=== PATIENT | male | born 1945 | race Caucasian/White ===

== ENCOUNTER → 2023-08-24 08:29 | Outpatient (REF) | payer MEDICARE, OTHER, SELFPAY ==
[2023-08-24 10:20] LABS: % Basophils 0.6 % (0-2); % Eosinophils 3.9 % (0-6); % Immature Granulocytes 0.3 % (0-0.5); % Lymphocytes 26.9 % (20.5-51.1); % Monocytes 8.5 % (1.7-9.3); % Neutrophils 59.8 % (42.2-75.2); Absolute Eosinophils 0.3 10^3/uL (0-0.7); Absolute Lymphocytes 1.7 10^3/uL (1.2-3.4); Absolute Monocytes 0.6 10^3/uL (0.1-0.6); Absolute Neutrophils 3.9 10^3/uL (1.4-6.5); Hematocrit 39.5 % (39.0-52.0); Hemoglobin 13.2 g/dL (13.0-18.0); Mean Corp Hgb Conc. 33.4 g/dL (33.0-37.0); Mean Corpuscular Volume 95.9 fL (80.0-94.0); Mean Platelet Volume 9.1 fL (7.4-10.4); Nucleated Red Blood Cells % 0 % (-); Platelet Count 186 10^3/uL (130-400); Red Blood Cell Count 4.12 10^6/uL (4.70-6.10); Red Cell Dist. Width 13.3 % (11.5-14.5); White Blood Cell Count 6.5 10^3/uL (4.8-10.8)
[2023-08-24 10:56] LABS: ALT (SGPT) 21 U/L (0-50); AST (SGOT) 28 U/L (17-59); Albumin 4.6 g/dl (3.5-5.0); Alkaline Phosphatase 81 U/L (38-126); Blood Urea Nitrogen 26 mg/dl (9-20); Carbon Dioxide 28 mmol/L (22-30); Chloride 102 mmol/L (98-107); Glucose 116 mg/dl (70-99); HDL Cholesterol 38 mg/dl; LDL Cholesterol, Calculated 66 mg/dl; Potassium 4.8 mmol/L (3.5-5.1); Sodium 142 mmol/L (135-145); Total Bilirubin 1.7 mg/dl (0.2-1.3); Total Cholesterol 144 mg/dl (50-199); Total Protein 7.3 g/dl (6.3-8.2); Triglyceride 200 mg/dl (10-149); Very Low Density Lipoprotein 40 mg/dl (0-30); eGFR > 60.00
[2023-08-24 11:03] LABS: Vitamin D, 25-OH*** 46.5 ng/mL (30-80)
[2023-08-24 11:16] LABS: TSH 2.62 uIU/ml (0.47-4.68)
[2023-08-25 11:35] LABS: PSA Total 4.1 ng/mL (0.0-4.0)
== END ==
LOC: REG 08:29
PROVIDERS: ATTENDING PHYSICIAN Family Medicine
DX: F41.9 Anxiety disorder, unspecified (principal); I70.0 Atherosclerosis of aorta; R26.81 Unsteadiness on feet; H40.9 Unspecified glaucoma; N40.0 Benign prostatic hyperplasia without lower urinary tract symptoms; E78.00 Pure hypercholesterolemia, unspecified; Z86.73 Personal history of transient ischemic attack (TIA), and cerebral infarction without residual deficits; Z79.899 Other long term (current) drug therapy
CPT/HCPCS: 36415; 80053; 80061; 82306; 84153; 84154; 84443; 85025

== ENCOUNTER → 2023-09-03 14:21 | Outpatient (REF) | payer MEDICARE, OTHER, SELFPAY ==
[2023-09-03 19:02] LABS: Urine Albumin Negative (Neg - Trace); Urine Bilirubin Negative (Negative); Urine Character Clear (Clear); Urine Color Yellow; Urine Glucose Negative (Negative); Urine Ketone Trace (Negative); Urine Leukocyte Negative (Negative); Urine Nitrite Negative (Negative); Urine Occult Blood Negative (Negative); Urine Urobilinogen 1+ (Neg - 1+)
== END ==
LOC: CLAB 14:21
PROVIDERS: ATTENDING PHYSICIAN Surgery
DX: N39.0 Urinary tract infection, site not specified (principal)
CPT/HCPCS: 81003; 87086

== ENCOUNTER → 2023-11-10 12:40 | Outpatient (REF) | payer MEDICARE, OTHER, SELFPAY | LOC: HWRAD 12:40 | PROVIDERS: ATTENDING PHYSICIAN Surgery; FAMILY PHYSICIAN Family Medicine | DX: Z87.442 Personal history of urinary calculi (principal) | CPT/HCPCS: 76775 ==

== ENCOUNTER → 2023-12-15 13:09 | Outpatient (REF) | payer MEDICARE, OTHER, SELFPAY ==
[2023-12-17 18:39] LABS: PSA Total 13.6 ng/mL (0.0-4.0)
== END ==
LOC: REG 13:09
PROVIDERS: ATTENDING PHYSICIAN Surgery; FAMILY PHYSICIAN Family Medicine
DX: Z12.5 Encounter for screening for malignant neoplasm of prostate (principal); N40.1 Benign prostatic hyperplasia with lower urinary tract symptoms
CPT/HCPCS: 36415; 84153; 84154

== ENCOUNTER → 2023-12-17 10:58 | Outpatient (REF) | payer MEDICARE, OTHER, SELFPAY ==
[2023-12-17 11:43] LABS: ALT (SGPT) 22 U/L (0-50); AST (SGOT) 26 U/L (17-59); Albumin 4.6 g/dl (3.5-5.0); Alkaline Phosphatase 76 U/L (38-126); Blood Urea Nitrogen 27 mg/dl (9-20); Calcium 9.8 mg/dl (8.4-10.2); Carbon Dioxide 32 mmol/L (22-30); Chloride 99 mmol/L (98-107); Glucose 108 mg/dl (70-99); Sodium 141 mmol/L (135-145); Total Bilirubin 1.5 mg/dl (0.2-1.3); Total Protein 6.9 g/dl (6.3-8.2); eGFR > 60.00
== END ==
LOC: RAD 10:58
PROVIDERS: ATTENDING PHYSICIAN Surgery; FAMILY PHYSICIAN Family Medicine
DX: N28.89 Other specified disorders of kidney and ureter (principal)
CPT/HCPCS: 36415; 74170; 80053; Q9967

== ENCOUNTER 2024-01-04 07:02 | Outpatient (REF) | payer MEDICARE, OTHER, SELFPAY ==
[2024-01-04] VITALS (16 sets, daily range): BP systolic 54–122; BP diastolic 62–79
[2024-01-04 08:03] LABS: INR 1.03; PT 13.4 Sec (11.4-14.6)
[2024-01-04 08:06] LABS: % Basophils 0.5 % (0-2); % Eosinophils 5.4 % (0-6); % Immature Granulocytes 0.3 % (0-0.5); % Lymphocytes 26.2 % (20.5-51.1); % Monocytes 8.2 % (1.7-9.3); % Neutrophils 59.4 % (42.2-75.2); Absolute Eosinophils 0.3 10^3/uL (0-0.7); Absolute Lymphocytes 1.6 10^3/uL (1.2-3.4); Absolute Monocytes 0.5 10^3/uL (0.1-0.6); Absolute Neutrophils 3.5 10^3/uL (1.4-6.5); Hematocrit 37.3 % (39.0-52.0); Hemoglobin 12.8 g/dL (13.0-18.0); Mean Corp Hgb Conc. 34.3 g/dL (33.0-37.0); Mean Corpuscular Hgb 31.4 pg (27.0-31.0); Mean Corpuscular Volume 91.4 fL (80.0-94.0); Mean Platelet Volume 9.2 fL (7.4-10.4); Nucleated Red Blood Cells % 0 % (-); Platelet Count 185 10^3/uL (130-400); Red Blood Cell Count 4.08 10^6/uL (4.70-6.10); Red Cell Dist. Width 13.2 % (11.5-14.5)
[2024-01-04 08:08] LABS: Blood Urea Nitrogen 29 mg/dl (9-20); Calcium 9.5 mg/dl (8.4-10.2); Carbon Dioxide 30 mmol/L (22-30); Chloride 100 mmol/L (98-107); Estimated Creatinine Clearance 67 ml/min; Glucose 119 mg/dl (70-99); Potassium 4.1 mmol/L (3.5-5.1); Sodium 141 mmol/L (135-145); eGFR > 60.00
== END 2024-01-04 13:33 | disposition home or self-care (01) ==
LOC: RADI 07:02
PROVIDERS: ATTENDING PHYSICIAN Urology; FAMILY PHYSICIAN Family Medicine
DX: C64.2 Malignant neoplasm of left kidney, except renal pelvis (principal)
CPT/HCPCS: 88307; 36415; 50200; 77012; 80048; 85025; 85610; 88333; 88334; 99152; 99153

== ENCOUNTER → 2024-03-09 11:34 | Outpatient (REF) | payer MEDICARE, OTHER, SELFPAY | LOC: MRI 3T 11:34 | PROVIDERS: ATTENDING PHYSICIAN Urology; FAMILY PHYSICIAN Family Medicine | DX: R97.20 Elevated prostate specific antigen [PSA] (principal) | CPT/HCPCS: 36415; 72197; 86850; 86900; 86901; A9575 ==

== ENCOUNTER 2024-03-16 06:41 | Day surgery (SDC) | payer MEDICARE, OTHER, SELFPAY ==
[2024-03-16] VITALS (21 sets, daily range): BP systolic 97–132; BP diastolic 58–86; BMI 31.6
[2024-03-16 11:08] LABS: B.E. - POC 5.3 mmol/L; Glucose - POC 116 mg/dl (70-99); HCO3 - POC 30 mmol/L (21-28); Hematocrit - POC 38 % PCV (42-52); Hemodilution- POC Yes; Hemoglobin Calculated - POC 13.1; Ionized Calcium - POC 1.19 mmol/L (1.15-1.33); Lactate - POC 1.79 mmol/L (0.36-0.75); O2 Saturation %Calculated-POC 76.9 % (94-98); PCO2 - POC 43 mmHg (35-48); PO2 - POC 40 mmHg (83-108); Sodium - POC 140 mmol/L (136-145); Specimen Type - POC Venous; pH - POC 7.45 (7.35-7.45)
[2024-03-16] MEDS: NORMOSOL-R/PLASMALYTE-A 1000 IV (11:18)
[2024-03-16 15:47] LABS: Hematocrit 36.1 % (39.0-52.0); Mean Corp Hgb Conc. 33.2 g/dL (33.0-37.0); Mean Corpuscular Hgb 31.8 pg (27.0-31.0); Mean Corpuscular Volume 95.8 fL (80.0-94.0); Mean Platelet Volume 8.7 fL (7.4-10.4); Platelet Count 117 10^3/uL (130-400); Red Blood Cell Count 3.77 10^6/uL (4.70-6.10); Red Cell Dist. Width 12.8 % (11.5-14.5); White Blood Cell Count 8.1 10^3/uL (4.8-10.8)
[2024-03-16] MEDS: DILAUDID 0.25 MG IV ×3 (15:57→16:32)
[2024-03-16 16:21] LABS: Blood Urea Nitrogen 20 mg/dl (9-20); Calcium 8.6 mg/dl (8.4-10.2); Carbon Dioxide 25 mmol/L (22-30); Chloride 100 mmol/L (98-107); Estimated Creatinine Clearance 76 ml/min; Glucose 145 mg/dl (70-99); Potassium 3.9 mmol/L (3.5-5.1); Sodium 136 mmol/L (135-145); eGFR > 60.00
[2024-03-16] MEDS: NSS 1000 IV (18:26)
[2024-03-16] MEDS: TYLENOL 650 MG PO ×2 (18:44→23:41)
--- NOTE | 2024-03-16 19:00 | PTCARENOTE ---
Received patient from PACU s/p L radical nephrectomy. Patient AAOX3, VSS, O2 sat stable on 2L. Admission completed with assistance of at bedside. Patient's 4 lap sites on L side of abdomen approximated and without drainage. NSS infusing through
L wrist IV at 100 ml/hr. Polo draining clear yellow urine, to be removed tomorrow at @ 0600 per MD order. SCDs in place on patient. Patient c/o abdominal pain/tenderness rated 6/10, requesting PRN tylenol, administered by this RN - see MAY. Patient
oriented to room and call lawrence, diet order entered for patient, patient okay for regular diet for dinner per urology, dinner at bedside.
[2024-03-16] MEDS: SENOKOT PO (21:16)
[2024-03-16] MEDS: FLOMAX 0.4 MG PO (21:17)
[2024-03-16] MEDS: PROSCAR 5 MG PO (21:17)
[2024-03-16] MEDS: XALATAN OPHTHALMIC SOLUTION 1 DROP BOTH EYES (21:17)
[2024-03-16] MEDS: LIPITOR 40 MG PO (21:17)
[2024-03-16] MEDS: ANESTHETIC LOZENGE 1 LOZENGE PO (21:47)
[2024-03-17 03:10] VITALS: BP 91/57
[2024-03-17] MEDS: TYLENOL 650 MG PO ×2 (04:21→10:27)
[2024-03-17] MEDS: NSS 1000 IV (04:25)
[2024-03-17 06:00] VITALS: BMI 31.6
--- NOTE | 2024-03-17 06:13 | PTCARENOTE ---
Removed Polo per order. Pt tolerated well. Due to void at 11:50. Pt with no complaints at this time, resting in bed. Call lawrence within reach.
[2024-03-17 07:05] VITALS: BP 112/60
[2024-03-17 07:38] LABS: Blood Urea Nitrogen 22 mg/dl (9-20); Calcium 8.3 mg/dl (8.4-10.2); Carbon Dioxide 22 mmol/L (22-30); Chloride 100 mmol/L (98-107); Estimated Creatinine Clearance 46 ml/min; Glucose 144 mg/dl (70-99); Sodium 136 mmol/L (135-145); eGFR 47.06
[2024-03-17 07:53] LABS: Hemoglobin 11.3 g/dL (13.0-18.0); Mean Corp Hgb Conc. 34.2 g/dL (33.0-37.0); Mean Corpuscular Volume 93.5 fL (80.0-94.0); Platelet Count 160 10^3/uL (130-400); Red Blood Cell Count 3.53 10^6/uL (4.70-6.10); Red Cell Dist. Width 12.9 % (11.5-14.5); White Blood Cell Count 12.6 10^3/uL (4.8-10.8)
[2024-03-17] MEDS: CLARITIN 10 MG PO (07:58)
[2024-03-17] MEDS: ZESTRIL 10 MG PO (07:58)
[2024-03-17] MEDS: SENOKOT 17.2 MG PO (07:58)
[2024-03-17] MEDS: ORETIC 12.5 MG PO (07:58)
[2024-03-17] MEDS: LEXAPRO 10 MG PO (07:58)
[2024-03-17] MEDS: TIMOPTIC 0.5% OPHTHALMIC SOLUTION 1 DROP BOTH EYES (07:59)
[2024-03-17] MEDS: ALPHAGAN 0.2% EYE DROPS 1 DROP BOTH EYES (07:59)
--- NOTE | 2024-03-17 08:44 | W.PN.URO.CBU ---
Today's Communication / Plan
-
Discharge
Assessment / Plan
-
78M with left renal mass, known renal cell carcinoma
post op s/p robotic left nephrectomy
- Reg diet
- Polo out
- ambulate
- IS
- PO pain control - patient requests tylenol only for pain
Discharge today
Diagnosis
-
Date of Service: March 17, 2024
-
Patient Diagnosis:
Renal cell carcinoma, left
TANYA due to nephrectomy
Post Op Day: 1 s/p robotic left nephrectomy
Subjective
-
tolerating diet
ambulated
minimal pain with only tylenol
Objective
-
Vital Signs
Temp Pulse Resp BP Pulse Ox
98.2 F 78 16 112/50 94
03/17/24 07:05 03/17/24 07:58 03/17/24 07:05 03/17/24 07:58 03/17/24 07:05
Intake and Output
03/16/24 03/17/24 03/18/24
06:59 06:59 06:59
Intake Total 2049
Output Total 700 / 700
Balance 1350 / 1350
Intake:
Oral fluids 600 / 600
IV fluids (Total) 1450 / 1450
Normosol 250 / 250
Output:
Urine, Polo 700 / 700
Laboratory Results
03/17/24 06:27
03/17/24 06:27
Physical Exam
-
General - well developed, well nourished, no acute distress
Chest - clear, unlabored
Abdomen - soft, non-tender
Skin - warm & dry with no rash
Neuro - AOx3, no motor deficits
Extremities - no clubbing, no cyanosis, no edema
Incision - clean, dry
Dressing - clean, dry, intact
--- NOTE | 2024-03-17 11:54 | CM ---
Patient seen at bedside.
IA completed.
Lives at [facility], no steps
PLOF: Independent with cane
DME: Cane
Denies insecurities
Has had [facility] in past/denies SNF
offered VN-Declines VN
PCP: Dr. Mojica
Pharmacy: [facility] [address], [place]
PLAN: Home, declines vn
to transport
[2024-03-17 11:58] VITALS: BP 116/58
--- NOTE | 2024-03-17 12:04 | PTCARENOTE ---
Patient discharged home. IVs removed by this RN, patient dressed and gathered belongings independently in room. Discharge instructions reviewed at bedside by this RN with patient and patient's , both verbalized understanding. Vitals taken by
tech. Patient being transported home by , taken down to car via staff escort and wheelchair.
== END 2024-03-17 12:10 | disposition home or self-care (01) ==
LOC: SDS 06:41
PROVIDERS: ATTENDING PHYSICIAN Urology
DX: C64.2 Malignant neoplasm of left kidney, except renal pelvis (principal)
CPT/HCPCS: 50543; 88307; 80048; 85027; 86850; 86900; 86901; 86920; 87070

== ENCOUNTER → 2024-05-24 12:13 | Outpatient (REF) | payer MEDICARE, OTHER, SELFPAY ==
[2024-05-24 13:08] LABS: Hematocrit 33.4 % (39.0-52.0); Mean Corp Hgb Conc. 32.9 g/dL (33.0-37.0); Mean Corpuscular Hgb 31.3 pg (27.0-31.0); Mean Corpuscular Volume 95.2 fL (80.0-94.0); Mean Platelet Volume 9.6 fL (7.4-10.4); Platelet Count 157 10^3/uL (130-400); Red Blood Cell Count 3.51 10^6/uL (4.70-6.10); Red Cell Dist. Width 13.4 % (11.5-14.5); White Blood Cell Count 5.4 10^3/uL (4.8-10.8)
[2024-05-24 14:21] LABS: Blood Urea Nitrogen 30 mg/dl (9-20); Carbon Dioxide 23 mmol/L (22-30); Chloride 104 mmol/L (98-107); Glucose 107 mg/dl (70-99); Potassium 4.2 mmol/L (3.5-5.1); Sodium 137 mmol/L (135-145); eGFR 46.77
== END ==
LOC: OLABPV 12:13
PROVIDERS: ATTENDING PHYSICIAN Urology
DX: R97.20 Elevated prostate specific antigen [PSA] (principal); C64.2 Malignant neoplasm of left kidney, except renal pelvis
CPT/HCPCS: 36415; 80048; 84153; 84154; 85027

== ENCOUNTER → 2024-06-14 10:13 | Outpatient (REF) | payer MEDICARE, OTHER, SELFPAY ==
[2024-06-14 12:00] LABS: Chloride 105 mmol/L (98-107); Potassium 4.5 mmol/L (3.5-5.1); Sodium 141 mmol/L (135-145)
[2024-06-14 12:08] LABS: Blood Urea Nitrogen 30 mg/dl (9-20); Calcium 9.6 mg/dl (8.4-10.2); Carbon Dioxide 24 mmol/L (22-30); Glucose 120 mg/dl (70-99); eGFR 50.81
== END ==
LOC: OLABPV 10:13
PROVIDERS: ATTENDING PHYSICIAN Urology
DX: C64.2 Malignant neoplasm of left kidney, except renal pelvis (principal)
CPT/HCPCS: 36415; 80048

== ENCOUNTER → 2024-06-16 11:22 | Outpatient (REF) | payer MEDICARE, OTHER, SELFPAY | LOC: RAD 11:22 | PROVIDERS: ATTENDING PHYSICIAN Urology; FAMILY PHYSICIAN Family Medicine | DX: C64.2 Malignant neoplasm of left kidney, except renal pelvis (principal) | CPT/HCPCS: 71270; 74170; Q9967 ==

== ENCOUNTER → 2024-10-03 10:06 | Outpatient (REF) | payer MEDICARE, OTHER, SELFPAY ==
[2024-10-03 11:15] LABS: Hematocrit 34.4 % (39.0-52.0); Hemoglobin 11.5 g/dL (13.0-18.0); Mean Corp Hgb Conc. 33.4 g/dL (33.0-37.0); Mean Corpuscular Volume 92.7 fL (80.0-94.0); Platelet Count 186 10^3/uL (130-400); Red Cell Dist. Width 13.0 % (11.5-14.5)
[2024-10-03 11:55] LABS: Blood Urea Nitrogen 25 mg/dl (9-20); Calcium 9.1 mg/dl (8.4-10.2); Carbon Dioxide 28 mmol/L (22-30); Chloride 106 mmol/L (98-107); Glucose 102 mg/dl (70-99); Potassium 5.1 mmol/L (3.5-5.1); Sodium 141 mmol/L (135-145); eGFR 46.77
== END ==
LOC: SDSPAT 10:06
PROVIDERS: ATTENDING PHYSICIAN Urology; FAMILY PHYSICIAN Family Medicine
DX: Z01.818 Encounter for other preprocedural examination (principal)
CPT/HCPCS: 36415; 80048; 85027; 93005

== ENCOUNTER 2024-10-12 06:30 | Day surgery (SDC) | payer MEDICARE, OTHER, SELFPAY ==
[2024-10-03 14:07] VITALS: BMI 29.9
[2024-10-12] VITALS (14 sets, daily range): BP systolic 118–150; BP diastolic 56–97; BMI 29.9
[2024-10-12] MEDS: NORMOSOL-R/PLASMALYTE-A 1000 IV (09:50)
--- NOTE | 2024-10-12 12:41 | W.IMMPOSTOP ---
Surgical Immed Post Op Note
-
Primary Surgeon: Horacefer
Assisting Surgeon: -
Pre-op Diagnosis: BPH
Post-op Diagnosis: same
Procedure Performed: TURP
Anesthesia Type: gen
Specimen / Cultures: prostate chips
Estimated Blood Loss: 2cc
Complications: none
Operative Findings: -
[2024-10-12] MEDS: CLARITIN 10 MG PO (15:12)
[2024-10-12] MEDS: NSS 1000 IV (15:13)
--- NOTE | 2024-10-12 15:29 | CM ---
Reviewed the chart notes and spoke with the patient and spouse at the bedside. CBI running. The patient resides with spouse in an independent cottage at [facility]. The patient has a cane and bathroom grab bar. The patient has had [facility], but
no SNF. The patient confirmed his pharmacy of choice is [facility]. CM continues to be available to patient/family and is monitoring medical plan for needs at discharge.
Plan: Discharge plans will depend on the patient's progress.
[2024-10-12] MEDS: TIMOPTIC 0.5% OPHTHALMIC SOLUTION 1 DROP BOTH EYES (18:21)
[2024-10-12] MEDS: ALPHAGAN 0.2% EYE DROPS 1 DROP BOTH EYES (18:21)
[2024-10-12] MEDS: FLOMAX 0.4 MG PO (22:25)
[2024-10-12] MEDS: PROSCAR 5 MG PO (22:25)
[2024-10-12] MEDS: LIPITOR 40 MG PO (22:25)
[2024-10-12] MEDS: LEXAPRO 10 MG PO (22:25)
[2024-10-12] MEDS: XALATAN OPHTHALMIC SOLUTION 1 DROP BOTH EYES (22:26)
[2024-10-13] MEDS: TYLENOL 650 MG PO ×2 (02:22→12:53)
[2024-10-13 03:15] VITALS: BP 120/63
[2024-10-13 07:00] VITALS: BP 120/56
[2024-10-13 07:29] LABS: Hematocrit 30.9 % (39.0-52.0); Hemoglobin 10.4 g/dL (13.0-18.0); Mean Corp Hgb Conc. 33.7 g/dL (33.0-37.0); Mean Corpuscular Volume 90.9 fL (80.0-94.0); Platelet Count 145 10^3/uL (130-400); Red Cell Dist. Width 13.1 % (11.5-14.5)
--- NOTE | 2024-10-13 07:54 | PTCARENOTE ---
Order to clamp CBI at 0600. Prior to clamping CBI was running clear/yellow & free of clots. Post clamping, pt ambulated to bathroom as they felt they needed to move their bowels. Upon returning to bed, myers bag was tinged red w/o clots. CBI flow
restored to prevent clotting & clear up myers bag. CBI Intervention is documented -850. Bag #7 emptied for 950; however, dayshift is to take credit for this amount. True I&O for nightshift is 9000 mL instilled & 9100 drained-true urine 100. Pt
reports no pain, feeling of fullness in bladder or discomfort. Pt resting comfortably & states no further needs at this time- dayshift RN notified of this change.
[2024-10-13] MEDS: CLARITIN 10 MG PO (08:25)
[2024-10-13] MEDS: ORETIC 12.5 MG PO (08:25)
[2024-10-13] MEDS: OCUVITE SOFTGEL 1 CAP PO (08:25)
[2024-10-13] MEDS: ZESTRIL 10 MG PO (08:26)
[2024-10-13 08:27] LABS: Blood Urea Nitrogen 27 mg/dl (9-20); Calcium 8.8 mg/dl (8.4-10.2); Carbon Dioxide 23 mmol/L (22-30); Chloride 108 mmol/L (98-107); Estimated Creatinine Clearance 39 ml/min; Glucose 137 mg/dl (70-99); Potassium 4.5 mmol/L (3.5-5.1); Sodium 137 mmol/L (135-145); eGFR 46.77
[2024-10-13] MEDS: TIMOPTIC 0.5% OPHTHALMIC SOLUTION 1 DROP BOTH EYES (08:27)
[2024-10-13] MEDS: ALPHAGAN 0.2% EYE DROPS 1 DROP BOTH EYES (08:27)
--- NOTE | 2024-10-13 10:26 | PTCARENOTE ---
per Urology order [address] catheter d/sandra. pt given urinal and bladder scan per orders will be complete once patient has urinary output
[2024-10-13 11:18] VITALS: BP 119/64
--- NOTE | 2024-10-13 13:24 | PTCARENOTE ---
PT CBI clamped and discontinued this morning. at 1250 pt with 60ccs of punch colored urine, pt verbalizes pain when urinating. no clots seen in urinal. Urology made aware. encouraged hydration and pyridium added at this time.
--- NOTE | 2024-10-13 13:28 | CM ---
Reviewed the chart notes and spoke with the patient at the bedside. Patient's myers removed. Patient voiding in urinal. Patient anticipates being discharged today to home with no needs. Patient's spouse will provide transportation. CM continues
to be available to patient/family and is monitoring medical plan for needs at discharge.
Plan: Discharge to home when medically stable. No needs anticipated at this time.
--- NOTE | 2024-10-13 13:49 | W.PN.URO.CBU ---
Today's Communication / Plan
-
TOV
Discharge
Assessment / Plan
-
79M POD 1 s/p TURP
- Trial of void, myers out
- Likely discharge today
Diagnosis
-
Date of Service: October 13, 2024
-
Patient Diagnosis:
BPH
LUTS
:
Subjective
-
no events overnight
Objective
-
Vital Signs
Temp Pulse Resp BP Pulse Ox
97.7 F 62 16 119/64 97
10/13/24 11:18 10/13/24 11:18 10/13/24 11:18 10/13/24 11:18 10/13/24 11:18
Intake and Output
10/12/24 10/13/24 10/14/24
06:59 06:59 06:59
Intake Total 305 / 305
Output Total 50 / 50 -850 / -850
Balance 255 / 255 850 / 850
Intake:
Oral fluids 180 / 180
IV fluids (Total) 125 / 125
normosol 125 / 125
Output:
True Urine Output from CBI 50 / 50 -850 / -850
Laboratory Results
10/13/24 07:21
10/13/24 07:21
Physical Exam
-
General - well developed, well nourished, no acute distress
Chest - clear bilaterally
Abdomen - soft, non-tender
Myers in place, clear urine
[2024-10-13 15:01] VITALS: BP 123/71
== END 2024-10-13 15:36 | disposition home or self-care (01) ==
LOC: SDS 06:30
PROVIDERS: ATTENDING PHYSICIAN Urology
DX: N40.1 Benign prostatic hyperplasia with lower urinary tract symptoms (principal)
CPT/HCPCS: 52601; 80048; 85027; 88305

== ENCOUNTER → 2024-10-17 15:19 | Outpatient (REF) | payer MEDICARE, OTHER, SELFPAY ==
[2024-10-17 16:05] LABS: Urine Character Clear (Clear)
[2024-10-17 16:36] LABS: Urine Red Blood Cell 30-40 /HPF (0-2); Urine White Cell 16-20 /HPF (0-5)
== END ==
LOC: CLAB 15:19
PROVIDERS: ATTENDING PHYSICIAN Urology
DX: N39.0 Urinary tract infection, site not specified (principal)
CPT/HCPCS: 81003; 81015; 87086

== ENCOUNTER → 2024-12-18 13:38 | Outpatient (REF) | payer MEDICARE, OTHER, SELFPAY ==
[2024-12-18 14:56] LABS: Blood Urea Nitrogen 26 mg/dl (9-20); Calcium 9.5 mg/dl (8.4-10.2); Carbon Dioxide 29 mmol/L (22-30); Chloride 104 mmol/L (98-107); Glucose 110 mg/dl (70-99); Potassium 4.4 mmol/L (3.5-5.1); Sodium 141 mmol/L (135-145); eGFR 43.29
== END ==
LOC: REG 13:38
PROVIDERS: ATTENDING PHYSICIAN Urology
DX: C64.2 Malignant neoplasm of left kidney, except renal pelvis (principal); K86.9 Disease of pancreas, unspecified
CPT/HCPCS: 36415; 80048

== ENCOUNTER → 2024-12-19 16:24 | Outpatient (REF) | payer MEDICARE, OTHER, SELFPAY | LOC: RAD 16:24 | PROVIDERS: ATTENDING PHYSICIAN Urology; FAMILY PHYSICIAN Family Medicine | DX: C64.2 Malignant neoplasm of left kidney, except renal pelvis (principal); K86.9 Disease of pancreas, unspecified | CPT/HCPCS: 74170; Q9967 ==

== ENCOUNTER 2025-01-29 10:06 | Inpatient (IN) | payer MEDICARE, OTHER, SELFPAY ==
[2025-01-29] VITALS (66 sets, daily range): BP systolic 121–176; BP diastolic 77–137; BMI 30.1
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
--- NOTE | 2025-01-29 08:58 | ED.CVA ---
History of Present Illness
General
Chief Complaint: CVA/TIA Symptoms
Source: patient
Exam Limitations: none
Time Seen by Provider: 01/29/25 08:42
Nursing documentation reviewed up to this point in time: agreed with
Onset of Stroke Symptoms
Onset of symptoms known: Yes
Date of onset of symptoms: 01/29/25
Time of onset of symptoms: 07:40
History of Present Illness
History of Present Illness:
Patient with history of ocular stroke, resolved completely, presents to ED secondary to sudden onset of slurred speech with facial droop, as he was getting ready to go out this morning around 7:40 AM. Denies headache. Denies difficulty with
swallowing. Denies loss of sensation or weakness. Denies difficulty with ambulation. Denies previous history of similar symptoms. Patient does not take any blood thinning medications.
Past History
Past History
ED Past Medical History: CVA (left occipital lobe 2019), Hypercholesterolemia and Other (Kidney stones, Vertigo, UTI, Prostatitis, TIA)
ED Past Surgical History: Appendectomy, Cholecystectomy, Orthopedic (Back surgery with rods; Pin right wrist 25 yrs ago. Right knee arthroscopy), Urological (Prostate biopsy November 2013) and Other (cataract extractions)
Social History
Tobacco: Non-smoker
Alcohol: Occasional
Personal:
Living: with family
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
Family History
Family History: Other (Brother with bladder cancer)
Review of Systems
Review of Systems
Allergies reviewed?: Yes
All Other Systems: ROS reviewed and negative except as documented in HPI and ROS
Constitutional: Reports no symptoms
Respiratory: Reports no symptoms
Cardiac: Reports no symptoms
ABD/GI: Reports no symptoms
Musculoskeletal: Reports no symptoms
Skin: Reports no symptoms
Neurological: Reports other (slurred speech/facial droop)
Phy Exam
Physical Exam
Physical Exam:
Physical Exam
General: no apparent distress, not acutely ill. afebrile
Head: nc/at. eomi
Neck: supple. no meningeal signs.
Heart: s1/s2 regular rate and rhythm
Lungs: no acute respiratory distress. clear bilaterally
Abdomen: normal bowel sounds. not tender.
Neuro: alert and oriented x 3. no focal sensory/motor deficit. slurred speech with right facial droop
Skin: no rash
Psychiatric: well kept. interactive and cooperative
Extremities: no edema. no calf tenderness.
Course
Orders/Labs/Results
Orders:
Orders
01/29/25 08:43
Electrocardiogram (*1) Stat
Reason for Study: Other
Other Reason for Exam: neuro symptoms
CT BRAIN PERF STROKE ALERT Urgent
Comment:
Reason For Exam: facial droop with slurred speech
CT HEAD STROKE ALERT W/o Cont Urgent
Comment:
Reason For Exam: facial droop with slurred speech
CT HEAD/NECK ANG STROKE ALERT Urgent
Comment:
Reason For Exam: facial droop with slurred speech
Bedside Glucose- Treatment ONCE
Cardiac Monitoring- Treatment ONCE
EKG- Treatment ONCE
01/29/25 08:59
Complete Blood Count/With Diff Urgent
Glycohemoglobin (HgbA1c) Urgent
PTT Urgent
Prothrombin Time Urgent
01/29/25 09:13
Tenecteplase [Tnkase] 24 mg Syringe [Syringe Non-Pump] 0 ml IV NOW
Provider explained risk/benefits to patient &/or caregiver?: Yes
01/29/25 09:23
Labetalol HCl [Trandate] 20 mg .ROUTE .STK-MED ONE
01/29/25 09:24
Labetalol HCl [Trandate] 10 mg IV NOW STA
01/29/25 09:56
Comprehensive Metabolic Panel Urgent
Abnormal Lab Results
11/24/25 11/24/25 11/24/25
08:59 09:13 09:56
RBC 3.95 L 10^6/uL
(4.70-6.10)
Hgb 12.5 L g/dL
(13.0-18.0)
Hct 38.2 L %
(39.0-52.0)
MCV 96.7 H fL
(80.0-94.0)
MCH 31.6 H pg
(27.0-31.0)
MCHC 32.7 L g/dL
(33.0-37.0)
Eosinophils % 6.9 H %
(0-6)
BUN 24 H mg/dl
(9-20)
Glucose 110 H mg/dl
(70-99)
Total Bilirubin 1.4 H mg/dl
(0.2-1.3)
POC Glucose 131 H mg/dl
(70-99)
01/29/25 08:59
01/29/25 09:56
Vital Signs
Initial and Last Documented VS:
Initial Vital Signs
BP
172/101
01/29/25 09:14
Last Documented Vital Signs
Temp Pulse Resp BP Pulse Ox
98.1 F 69 17 171/98 96
01/30/25 16:34 01/30/25 16:34 01/30/25 16:34 01/30/25 16:34 01/30/25 16:34
MDM/Problems Addressed
MDM/Problems Addressed:
Stroke alert activated upon immediate evaluation. Dr. Dill, neurology, evaluated patient as well.
CT head: No acute findings.
After evaluation, recommends TNK administration. No contraindications for TNK noted. Risk of bleeding up to 6%, discussed with patient, by neurology.
Patient will be admitted for further evaluation and treatment afterwards.
Critical care statement: A total of 40 minutes of critical care time was provided for this patient. This includes management of unstable vital signs, evaluation of the patient at bedside, reviewing the patient's pertinent medical records, discussion
with consultants, review of old EKGs and review of pertinent medical records. This time with separate from time utilized to perform the aforementioned documented procedures
*Pulse Oximetry
Patient hypoxic: no
*EKG
Interpreted by ED Provider?: Yes
EKG Intrepretation Date: 01/29/25
Heart Rate: 68
Rate: normal
[place]: normal axis
Interval: normal interval
*Critical Care Note
Total Time (30-74mins, 75-104mins- exclusive of procedures): 40 min
ED Attending Note
-
Portions of this chart may have been created with voice recognition software.� Occasional wrong word or��sound alike� substitutions may have occurred due to the inherent limitations of voice recognition software.
Discharge Plan
Departure
Patient Disposition: Admit
Date of Disposition: 01/29/25
Time of Disposition: 09:19
Admit to: ICU
Presentation/result/management discussed w/ accepting MD/DO: Hospitalist
Discharge Problem:
Acute CVA (cerebrovascular accident)
Interventions
Interventions:
*Risk Screen - Suicide Last Done: 01/29/25 08:56
*General Assessment Last Done: 01/29/25 08:45
*Neglect/Abuse Screening Last Done: 01/29/25 08:45
*ED- Fall Risk Assessment Last Done: 01/29/25 10:09
*ED COVID-19 Vaccine History Last Done: 01/29/25 10:06
*ED Influenza Vaccine History Last Done: 01/29/25 10:06
*Nursing Disposition Last Done: 01/29/25 11:14
ED- Pulmonary Assessment Last Done: 01/29/25 09:04
ED- Neurological Assessment Last Done: 01/29/25 09:26
ED- Cardiac Assessment Last Done: 01/29/25 09:04
ED Swallowing Screen Last Done: 01/29/25 10:35
Discharge Date and Time
Discharge Date/Time: 01/29/25 11:01
[2025-01-29 09:14] LABS: Glucose - Point of Care 131 mg/dl (70-99)
[2025-01-29 09:20] LABS: Hematocrit 38.2 % (39.0-52.0); Hemoglobin 12.5 g/dL (13.0-18.0); Mean Corp Hgb Conc. 32.7 g/dL (33.0-37.0); Mean Corpuscular Volume 96.7 fL (80.0-94.0); Nucleated Red Blood Cells % 0 % (-); Platelet Count 197 10^3/uL (130-400); Red Cell Dist. Width 13.4 % (11.5-14.5)
[2025-01-29] MEDS: TRANDATE 10 MG IV (09:25)
[2025-01-29] MEDS: TNKASE 4.8 MG IV (09:26)
[2025-01-29 09:36] LABS: INR 0.97; PT 13.2 Sec (11.4-14.6)
[2025-01-29 09:37] LABS: APTT 30.0 Sec (23.4-35.0)
--- NOTE | 2025-01-29 10:33 | HPS.HSE ---
Family Physician
-
Family Physician: Stevan Mojica
Chief Complaint
-
right facial droop and slurred speech
History of Present Illness
Patient is 79-year-old male with past medical history of occipital stroke, hyperlipoidemia, depression, hypertension, BPH, history of nephrolithiasis, history of renal cell cancer status post radical left nephrectomy, history of loop recorder with
with removal, history of lumbar laminectomy/fusion, status post TURP was brought in by family after patient was noted to having new onset of right facial droop and slurring of words. Patient was in his usual state of health on waking up and noticed
new onset of right facial droop and slurring while brushing teeth. No reported upper or lower extremity weakness or sensation changes. In ER patient had some right upper extremity numbness which has resolved. Patient had reported palpitation
although no associated dizziness/chest discomfort. Patient was dealing with some recent upper respiratory viral infection and associated headache although that has resolved. No other GI or complaints.
Medical History
Past Medical History
Past Medical History: Reports Other
Additional Past Medical History:
occipital stroke, hyperlipoidemia, depression, hypertension, BPH, history of nephrolithiasis, history of renal cell cancer status post radical left nephrectomy, history of loop recorder
Past Surgical History: Reports Other
Social History
Tobacco: Non-smoker
Alcohol: None
Personal:
Living: With Family
Family History
Family History: Not pertinent
Allergies / Home Medications
Allergies reflects when Allergies were last updated in [facility].
Home Medications with original date entered in [facility]
Allergy/Medication List:
Allergies
Allergy/AdvReac Type Severity Reaction Status Date / Time
amoxicillin Allergy Rash Verified 01/29/25 08:45
latex Allergy Rash Verified 01/29/25 08:45
Home Medications
desloratadine 5 mg tablet 5 mg PO QHS Allergies 01/21/22
Prevagen 1 tab PO DAILY Supplement 12/31/23
sennosides 8.6 mg tablet (senna) 8.6 mg PO BIDPRN PRN constipation 12/31/23
vitamins A,C,K-ekmd-xgylob 2,148 mcg-113 mg-45 mg-17.4 mg tablet (PreserVision AREDS) 1 tab PO DAILY Supplement 12/31/23
aspirin 81 mg tablet,delayed release 162 mg PO ONCE CVA symptoms 01/29/25
atorvastatin 40 mg tablet 40 mg PO HS High Cholesterol 01/29/25
bimatoprost 0.01 % eye drops (Lumigan) 1 drp BOTH EYES QPM Eye Condition 01/29/25
brimonidine 0.2 %-timolol 0.5 % eye drops (Combigan) 1 drp BOTH EYES BID Eye Condition 01/29/25
escitalopram oxalate 10 mg tablet (Lexapro) 10 mg PO DAILY Mental Health/Anxiety 01/29/25
ibuprofen 200 mg tablet 200 mg PO Q6H PRN mild pain 01/29/25
trospium 60 mg capsule,extended release 24 hr 60 mg PO DAILY Urinary Issue 01/29/25
Review of Systems
-
A 12 point ROS was completed and negative except as noted: Yes
Physical Exam
Vital Signs
Vital Signs
Temp Pulse Resp BP Pulse Ox
97.6 F 53 22 149/90 98
01/29/25 09:16 01/29/25 10:11 01/29/25 10:11 01/29/25 10:11 01/29/25 09:27
Physical Exam
General: No Apparent Distress
HEENT: Atraumatic; No Oxygen
Respiratory: Clear
Cardiac: S1/S2 and Regular Rhythm; No Murmur or Rub
GI: Soft, Non Tender and Non Distended; No Organomegaly
Rectal: Deferred by Provider
Musculoskeletal: No Clubbing, No Cyanosis and No Edema
Skin: No Rash
Neuro: Awake, Alert, Oriented and Nonfocal/grossly intact
Laboratory Results
-
01/29/25 08:59
Laboratory Results
PT 13.2 Sec (11.4-14.6) 01/29/25 08:59
INR 0.97 01/29/25 08:59
APTT 30.0 Sec (23.4-35.0) 01/29/25 08:59
Total Bilirubin Cancelled 01/29/25 08:59
AST Cancelled 01/29/25 08:59
ALT Cancelled 01/29/25 08:59
Alkaline Phosphatase Cancelled 01/29/25 08:59
Impression/Plan
-
1. Acute CVA
Status post TNK in ER
- Came with new onset of right facial droop and slurring of words.
- CT head and CT head not did not show any acute abnormality
- Patient with history of occipital stroke in 2019
- Neurology evaluated and patient was provided TNK in ER
- Patient being admitted to ICU for closer monitoring
- Follow-up MRI brain to be done tomorrow morning
- Lipid profile/hemoglobin A1c check ordered
- PT/OT/ST check ordered
- NIH scale/neurochecks ordered
- Neurology consulted in ER and await further recommendation
2. Essential hypertension
- Unclear if has formal diagnosis although some documentation on previous record review
- Not currently on any medication
- Ordered PRN hydralazine post TNK protocol. Unable to tolerate labetalol due to bradycardia.
3. HLD
- maintain on atrovastatin
History of kidney stone
History of left radical nephrectomy
History of lumbar spinal surgery
History of TURP
DVT PPX - scd
Full code
Total time spent : 78 mins
I personally saw and examined the patient.
I have reviewed all diagnostic interpretations and treatment plans as written.
Time includes patient management by me, time spent at the patients bedside, time to review lab and imaging results, discussing patient care, documentation in the medical record, and time spent with the family or caregiver and discussing care plan
with RN/Consultants.
[2025-01-29 10:34] LABS: ALT (SGPT) 18 U/L (0-50); AST (SGOT) 23 U/L (17-59); Albumin 4.1 g/dl (3.5-5.0); Alkaline Phosphatase 77 U/L (38-126); Blood Urea Nitrogen 24 mg/dl (9-20); Calcium 9.0 mg/dl (8.4-10.2); Carbon Dioxide 26 mmol/L (22-30); Chloride 103 mmol/L (98-107); Glucose 110 mg/dl (70-99); Potassium 4.1 mmol/L (3.5-5.1); Sodium 136 mmol/L (135-145); Total Protein 6.8 g/dl (6.3-8.2); eGFR 55.53
--- NOTE | 2025-01-29 10:51 | EDCM ---
Reviewed chart and met with pt and bedside in ED. They live in a [facility].
Independent in ADLs, personal care and ambulation at baseline. Uses cane. Still drives but not at night.
Confirms prescription coverage through [facility].
No hx VN or SNF, hx OP PT at after last stroke
PCP: Dr Mojica
Pharmacy: [facility] [address]
Disposition pending ongoing medical evaluation, CM will continue to follow for all discharge planning needs.
--- NOTE | 2025-01-29 10:56 | PTCARENOTE ---
Received patient from ED, A&Ox3, NIHSS 5 with Right side facial droop and slurred speech, denied pain throughout, SB in 50s, BP within ordered parameters, on RA, NPO, continent, noted Left Wrist and Left AC Bruise from previous IV site.
Failed nursing bedside swallow eval. Patient reported that he had a cold last week and still have ongoing nonproductive cough. Patient presented wet voice with think liquids as he was unable to clear his own oral secretions from Right side facial
droop.
[2025-01-29 11:16] LABS: Glucose - Point of Care 124 mg/dl (70-99)
--- NOTE | 2025-01-29 12:30 | PTCARENOTE ---
Reassessed the patient, neuro checks remained unchanged from previous assessments. Pending Speech eval.
[2025-01-29 14:21] LABS: Glycohemoglobin (HgbA1c) 5.9 % (4.0-5.9)
--- NOTE | 2025-01-29 15:06 | PTOTSP ---
Speech Therapy Evaluation:
Pt presents w/ acute (CVA symptoms) and chronic (prior CVA, GERD) risk factors for aspiration/dysphagia. Given overt s/sx of aspiration observed during bedside swallow evaluation (coughing w/ ice chips and single cup sips of water), poor secretion
management, and consistent wet vocal quality, it is recommended that pt is NPO until further ST F/U. ST to F/U to trial diet level advancements and determine if instrumental swallow study warranted to objectively rule out aspiration.
Quick Aphasia Battery (QAB) administered to further assess language domains as pt presenting to hospital w/ dysarthria and aphasia. Pt's score of 8.71 indicates a mild aphasia, w/ moderate anomia and moderate false starts/self-corrections. Moderate
dysarthria characterized by imprecise articulation, wet/gurgly and rough vocal quality, and mild changes in resonance.
Recommendations:
1. NPO
2. Non-oral medications vs necessary medications w/ puree
3. Oral care 3-4x a day given risk factors for aspiration
4. ST to F/U to trial diet level advancements, determine if instrumental swallow study warranted to objectively rule out aspiration, and further treat/assess acute changes in language/speech/cognition.
[2025-01-29] MEDS: TYLENOL 650 MG PO ×2 (15:45→20:24)
--- NOTE | 2025-01-29 16:00 | PTCARENOTE ---
Reassessed the patient, A&Ox4, NIHSS 4 with Right side facial droop, expressive aphasia and slurred speech. Patient failed speech eval in the afternoon, NPO but okay to give meds in puree/applesauce.
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
--- NOTE | 2025-01-29 20:00 | PTCARENOTE ---
Assumed care of patient. NIH done with off-going nurse, see separate NIH charting. Patient is alert and oriented, afebrile. He follows commands and moves all extremities equally. He is in normal sinus rhythm with adequate blood pressures per the
order, no edema noted, pulses all palpable. Left lower posterior lobe is coarse, and patient has dry cough that he states has been lingering since he was sick about a week ago. INSIDE TECHNICAL SALES REPRESENTATIVE made aware, chest x-ray ordered to establish baseline. He is on room
air. Abdomen is soft, non-tender, bowel sounds are present. Continent to urinal, light yellow urine. Left arm has two bruises from pre-TNK from old IV sites. Current IVs are c/d/i.
[2025-01-29] MEDS: MELATONIN 5 MG PO (20:24)
[2025-01-29] MEDS: SENOKOT-S 2 TABLET PO (20:25)
[2025-01-29] MEDS: LIPITOR 40 MG PO (20:25)
[2025-01-29] MEDS: XALATAN OPHTHALMIC SOLUTION 1 DROP BOTH EYES (20:31)
[2025-01-29] MEDS: TIMOPTIC 0.5% OPHTHALMIC SOLUTION 1 DROP BOTH EYES (20:31)
[2025-01-29] MEDS: ALPHAGAN 0.2% EYE DROPS 1 DROP BOTH EYES (20:31)
[2025-01-29] MEDS: ROBITUSSIN 200 MG PO (20:58)
--- NOTE | 2025-01-29 21:33 | W.PN.UPDATE ---
Update Note
Progress Note Update
The patient appears to have a left hemispheric stroke in the left MCA territory. MRI of the brain is pending. He is status post TNK administration.
[2025-01-30] VITALS (32 sets, daily range): BP systolic 112–171; BP diastolic 74–99; PULSE 59; O2SAT 97–98; BMI 31.6
--- NOTE | 2025-01-30 | PTCARENOTE ---
No changes in neuro checks, see separate charting. Patient has no complaints at this time.
[2025-01-30] MEDS: TYLENOL 650 MG PO ×2 (03:46→08:15)
--- NOTE | 2025-01-30 03:55 | PTCARENOTE ---
Patient complaining of mild headache that has been present since yesterday morning. Tylenol given for pain. Continuing neuro checks, no changes, see separate neuro charting.
[2025-01-30 03:58] LABS: Hematocrit 33.4 % (39.0-52.0); Hemoglobin 11.3 g/dL (13.0-18.0); Mean Corp Hgb Conc. 33.8 g/dL (33.0-37.0); Mean Corpuscular Volume 95.4 fL (80.0-94.0); Platelet Count 155 10^3/uL (130-400); Red Cell Dist. Width 13.4 % (11.5-14.5)
[2025-01-30 04:09] LABS: Blood Urea Nitrogen 21 mg/dl (9-20); Calcium 9.1 mg/dl (8.4-10.2); Carbon Dioxide 28 mmol/L (22-30); Chloride 105 mmol/L (98-107); Estimated Creatinine Clearance 52 ml/min; Glucose 120 mg/dl (70-99); HDL Cholesterol 28 mg/dl; LDL Cholesterol, Calculated 42 mg/dl; Potassium 3.9 mmol/L (3.5-5.1); Sodium 137 mmol/L (135-145); Very Low Density Lipoprotein 33 mg/dl (0-30); eGFR 55.53
[2025-01-30 04:10] LABS: INR 1.07; PT 14.2 Sec (11.4-14.6)
[2025-01-30 04:11] LABS: APTT 36.0 Sec (23.4-35.0)
[2025-01-30 06:08] LABS: Magnesium 2.0 mg/dl (1.6-2.3)
--- NOTE | 2025-01-30 07:45 | PTCARENOTE ---
Assumed care of patient. Pt rec'd A&Ox3. Pleasant. NIHSS completed....noted to be a 4 w/ deficits w/ right facial droop, dysarthria and asphasia. Will provide tylenol for headache...see MAR. Able to take po meds crushed w/ applesauce. NPO for
now. Will have speech eval again this am. S1 S2 reg w/ NSR on monitor. +PP. No edema. SCD's on. On R/A...sats 96%. Lungs clear w/ diminished lung bases. Loose cough. Encouraged coughing and deep breathing. Abdomen round...hypo BS. Voids
yellow in urinal. Skin pale...left arm bruising noted. VS documented. Call lawrence within reach. Safe environment confirmed.
[2025-01-30] MEDS: LEXAPRO 10 MG PO (08:15)
[2025-01-30] MEDS: TIMOPTIC 0.5% OPHTHALMIC SOLUTION 1 DROP BOTH EYES ×2 (08:18→20:21)
--- NOTE | 2025-01-30 08:18 | W.PN.INTV ---
Today's Communication / Plan
Recommendations
Start DAPT + high intensity statin per neurology
Awaiting echo with bubble study to evaluate for PFO/abnormal interatrial septal pathology
Failed LAUNCH OPERATOR via VFSS � patient agreed for Dobbhoff tube. Uses for oral medications and to start tube feeds
LAUNCH OPERATOR to follow and hopefully his swallowing ability and risk of aspiration will continue to improve, otherwise he may end up needing a PEG tube prior to discharge
PT/OT
He will likely need continued speech and language pathology services following discharge
Maintain euglycemia
Maintain normothermia
Goal BP <140/90; A1c: 5.9% (01/29/2025)
Patient is stable for downgrade out of ICU to telemetry. No additional recommendations at this time. Electrical Installation Inspector/Pulmonary service will now sign off. Please reconsult if there are any additional questions/concerns, or if patient's respiratory
status deteriorates.
Assessment
-
Assessment: 79-year-old male with a past medical history of left sided CVA, glaucoma, hypercholesterolemia, hypertension, BPH, GERD, depression, anxiety, history of kidney stones, colonic polyps and diverticulosis who presents with right-sided
facial droop and slurring words. Patient was in his usual state of health upon waking up prior to arrival and then noticed new onset of right-sided facial droop and slurring while brushing his teeth. In the ER, he is reports the right upper
extremity numbness had resolved. Stroke alert called and CT head initially showed no acute intracranial abnormality. CTA head/neck also showed no significant acute abnormality. Neurology consulted, and given concern for an acute ischemic CVA, tPA
was recommended and the patient was administered TNK. Patient then admitted to the ICU for further care and biological inspector consulted for additional management/recommendations.
Chronic conditions SALES DIRECTOR: glaucoma, history of posterior left medial lobe CVA, hypercholesterolemia, hypertension, BPH, aortic atherosclerosis, lumbar spinal stenosis, GERD, seasonal allergic rhinitis, depression, anxiety, history of kidney stones,
history of colonic polyps, diverticulosis
Impression:
#Expressive aphasia with right-sided facial droop with concern for ischemic CVA s/p TNK (administered on 01/29/2025 at 9:26 AM)
#Abnormal CTp with small predominantly matched perfusion abnormality within the lateral left frontal lobe due to L-MCA CVA (acute left lateral frontal lobe ischemic infarct seen on MRI brain today)
#History of occipital stroke
#History of BPH
#Hypertension
#Hypercholesterolemia
#GERD
#Aortic atherosclerosis
Plan:
- Strict BP control with goal <180/105 mmHg mainly for the first 24 hours s/p TNK, treating with prn IV anti-hypertensives if needed
- Now that has been 24 hours after TNK was given, okay to be more restricted with the BP parameters, with goal BP <140/90
- neurochecks can now be q4hr, and continue NIHSS q shift
- Patient now on DAPT with ASA + Plavix (recommended per neuro); given that he failed LAUNCH OPERATOR eval via VFSS, will need NGT to administer PO meds, and for nutritional purposes via tube feeds
- Maintain euglycemia with goal BG 140-180
- Maintain normothermia
- Keep NPO while he continues to be seen by LAUNCH OPERATOR
- Continue statin with goal LDL<70 (per neuro)
- Follow up echo with bubble study to r/o PFO
- MRI brain today confirmed an acute left lateral frontal lobe ischemic infarct
- Neuro consulted and recs appreciated
- Stat CT head for any sudden change in mental status or NIHSS with immediate notification to neurologist on-call
- PT/OT; he will need continued speech and language pathology services following discharge given his continued slurred speech with significant right-sided facial droop
- Maintain SpO2 >92-94%, using supplemental O2 if needed
- Maintain MAP>65
- Replete electrolytes with K>4, Mg>2
- Trend H/H and transfuse if needed to keep Hb>7g/dL; keep plt>100k
- prn nebulized bronchodilators - not currently bronchospastic
- Incentive spirometer encouraged 10x per hour for at least 4 hrs a day
- DVT ppx: Recommend to continue Lovenox
Patient is stable for downgrade out of ICU to telemetry. No additional recommendations at this time. Electrical Installation Inspector/Pulmonary service will now sign off. Thank you for allowing us to be involved in the care of this patient. Please reconsult if there
are any additional questions/concerns, or if patient's respiratory status deteriorates.
Total time spent today was 63 minutes for this encounter. Time includes reviewing laboratory test/imaging results, reviewing pertinent medical records, obtaining and reviewing medical history, performing an appropriate exam, ordering medications,
tests and procedures. Time also includes documentation of this encounter, coordinating patient care and communicating with other healthcare professionals. Total time does not include separately billed tests performed on this date of service.
Subjective Dataa
Subjective Data
Date of Service:
Date of Service: January 30, 2025
Chief Complaint: Electrical Installation Inspector Follow Up
Subjective:
Patient was seen and evaluated this morning. Having improved speech today. Aspiration seen today on video swallow study. This AM he went down to MRI; he has been on room air and breathing comfortably. Patient's , Honey, present at bedside
and all questions were answered. Patient mainly is hungry, wants some soup and endorses a frontal headache. He denies chest pain, SOB, nausea, fevers or chills.
Review of Systems
General: Other (Negative unless mentioned above)
Objective Data
Data Reviewed
Vital Signs / I&O / Oxygen:
Vital Signs
Temp Pulse Resp BP Pulse Ox
97.8 F 60 14 150/82 96
01/30/25 08:00 01/30/25 06:34 01/30/25 06:34 01/30/25 06:34 01/30/25 06:30
Intake and Output
01/29/25 01/30/25 01/31/25
06:59 06:59 06:59
Intake Total 0 / 0
Output Total 800 / 800
Balance -800 / -800
SaO2 96
Physical Exam
General: Respiratory Distress (negative), Comfortable, Chills (negative) and Sweats (negative)
HEENT: Normocephalic and Anicteric
Cardiovascular: S1-S2 and Peripheral Edema (negative)
Respiratory: Wheeze (negative), Crackles (negative), Rhonchi (negative) and Non-Labored Respirations
GI: Soft, Non Distended, Non Tender and Normal Bowel Sounds
Neurology: Awake, Alert, Tremors (negative), Other (right-sided facial droop (improved); abnormal H-test with difficulty looking to R and L outer lower quadrants; difficulty shrugging shoulders against resistance without jerking his entire body
backwards; normal hardwood sawyer strength bilaterally (5/5), and normal plantar/dorsi-flexion bilaterally (5/5)) and Other (normal sensation to light touch in all 4 extremities and all 6 quadrants of face; unable to move tongue laterally to the left)
Skin: Warm, Dry, Cyanosis (negative) and Jaundice (negative)
Labs/Micro/Reports
Lab Data
01/30/25 03:31
01/30/25 03:31
Laboratory Results
01/30/25
03:31
PT 14.2
INR 1.07
APTT 36.0 H
[2025-01-30] MEDS: ALPHAGAN 0.2% EYE DROPS 1 DROP BOTH EYES ×2 (08:19→20:20)
--- NOTE | 2025-01-30 09:22 | W.PN.HOSP.TC ---
Addendum entered and electronically signed by Tj Naranjo MD 01/30/25 15:30:
Patient dobhoff tube has been placed
will start on oral medications through tube
Original Note:
Today's Communication/Plan
-
Transfer telemetry floor
See note
Assessment / Plan
Assessment / Plan
MR brain
Acute left lateral frontal lobe ischemic infarct. No mass effect.
Additional chronic infarcts, chronic microvascular white matter ischemic disease, and atrophy. Mild acute right maxillary sinusitis.
1. Acute CVA
Status post TNK in ER
- Came with new onset of right facial droop and slurring of words.
- CT head and CT head not did not show any acute abnormality
- Patient with history of occipital stroke in 2019
- Neurology evaluated and patient was provided TNK in ER
- MRI brain showing left lateral frontal lobe ischemic infarct. Images reviewed personally.
- Lipid profile - TC 103 LDL 42, A1c 5.9
- Patient failed speech therapy evaluation. VSE done today and patient is strict n.p.o. with no oral medication
- Dobbhoff discussed with patient, initially hesitant but agreeable to be placed.
- Continue NIH/neurochecks
2. Essential hypertension
- Not on any medication at home. Monitor
- Will start for blood pressure control depending on vital trends
3. HLD
- maintain on Atorvastatin
History of kidney stone
History of left radical nephrectomy
History of lumbar spinal surgery
History of TURP
DVT PPX - scd
Full code
Care plan discussed with neurology/cupola tender helper
Total time spent 53 mins
Anticipated Discharge: 24 - 48 hours
Subjective/Interval History
-
Date of Service: January 30, 2025
persistent right facial droop/slurred
no fever overnight
no other issues
Objective Data
-
Labs:
Laboratory Results
01/30/25
03:31
WBC 6.4
Hgb 11.3 L
Hct 33.4 L
Plt Count 155 D
PT 14.2
INR 1.07
APTT 36.0 H
Sodium 137
Potassium 3.9
Chloride 105
Carbon Dioxide 28
BUN 21 H
Creatinine 1.3
Glucose 120 H
Calcium 9.1
Vital Signs:
Vital Signs
Temp Pulse Resp BP Pulse Ox
97.8 F 60 14 150/82 96
01/30/25 08:00 01/30/25 06:34 01/30/25 06:34 01/30/25 06:34 01/30/25 06:30
I&O
01/29/25 01/30/25 01/31/25
06:59 06:59 06:59
Intake Total 0 / 0
Output Total 800 / 800
Balance -800 / -800
Review of Systems
-
Respiratory: Reports No Symptoms
Cardiac: Reports No Symptoms
Abdomen/GI: Reports No Symptoms
Physical Exam
-
General: Negative Appears in Distress
HEENT: Negative Oxygen
GI: Soft, Nontender and Nondistended
Neuro: Awake, Alert, Oriented, Facial Droop and Other (slurred speech)
Psych: Calm
--- NOTE | 2025-01-30 09:28 | PTCARENOTE ---
Pt sent on stretcher and tele pack for video swallow this am.
--- NOTE | 2025-01-30 09:40 | PTOTSP ---
Speech Language Pathology
VIDEOFLUOROSCOPIC SWALLOWING EXAMINATION (VSE) completed. Mod oral and severe pharyngeal dysphagia noted. Pharyngeal residue noted, which reduced significantly with a cued effortful swallow. Penetration to the level of the vocal folds and/or
aspiration noted with all consistencies trialed. Brief ineffective throat clear noted in response to aspiration, approximately 10 seconds delayed.
Etiology of dysphagia is suspected acute CVA. Prognosis for short-term improvement is guarded, long-term improvement fair.
Recommend:
(1) NPO
(2) Oral care 4x/day with suctioning as needed
(3) Allow sparing ice chips post oral care given supervision per Aspiration Risk Hydration Protocol (ARHP)
(4) Non-oral meds
(5) COMPUTER ENGINEERING PROFESSOR to continue to follow
--- NOTE | 2025-01-30 10:20 | PTCARENOTE ---
Pt sent to MRI after video swallow.
--- NOTE | 2025-01-30 11:15 | PTCARENOTE ---
MRI and video swallow completed this am. Assist x 2 from stretcher to chair. Pt's at bedside. Pt tearful due to failing video swallow. Emotional support provided. No major changes in physical assessment since am. Call lawrence within reach.
Safe environment confirmed.
--- NOTE | 2025-01-30 12:31 | W.PN.NEURO.1 ---
Addendum entered and electronically signed by Esequiel Dill MD 01/30/25 19:05:
The patient was seen and examined today along with the nurse practitioner Sparkle Joyner, and I agree with the assessment and the management plan of the nurse practitioner Sparkle Joyner. Given below is my addendum.
This is an 79-year-old left-handed male who presented to the hospital on 01/29/25 with report of right facial drooping, dysarthria, and aphasia and is s/p TNK.
The MRI of the brain shows an acute left lateral frontal lobe ischemic infarct. The MRI also shows a small chronic infarct in the left occipital lobe. The MRI also shows a chronic infarct in the right frontal lobe and multiple tiny chronic
cerebellar infarcts. The etiology of this stroke appears to be embolic, likely cardioembolic. The patient speech is better today however he does have right-sided facial droop. The patient also says that he feels that his speech is better.
The plan is to continue with aspirin, clopidogrel and atorvastatin.
Echocardiogram.
30-day Holter monitoring as an outpatient.
Will sign off. Please call if you have any question.
Original Note:
Today's Communication / Plan
-
.
Neuro Assessment/Plan
Assessment
This is an 79-year-old left-handed male who presented to the hospital on 01/29/25 with report of right facial drooping, dysarthria, and aphasia and is s/p TNK. Patient was previously followed by our Neurology service for a left occipital ischemic
stroke with R homonymous hemianopsia in 2019 and another bilateral occipital ischemic stroke in 2020. He completed ILR monitoring x2 in the past which were unremarkable.
Neuro Imaging:
1. CT head 01/29/25: No acute intracranial abnormality. Severe senescent changes with multifocal encephalomalacia, similar to prior. ASPECT score: 10.
2. CTA Head/Neck 01/29/25: CTA Head: No significant arterial stenosis. No aneurysm. Mild mucosal thickening within the ethmoid air cells and right maxillary sinus. CTA Neck: No significant arterial stenosis.
3. CT brain perfusion 01/29/25: CBF 5ml, Tmax 5ml.
4. MRI brain 01/30/25: Acute left lateral frontal lobe ischemic infarct. No mass effect. Additional chronic infarcts, chronic microvascular white matter ischemic disease, and atrophy. Mild acute right maxillary sinusitis.
I. Acute left lateral lobe ischemic stroke; etiology appears to be cardioembolic.
II. History of old bilateral occipital lobe, right cerebellar, and right frontal lobe ischemic infarcts.
III. Completed ILR monitoring x2 in the past with unremarkable results.
Plan
-Okay to initiate rectal aspirin today as patient is NPO.
-Once GI access is obtained, initiate DAPT with aspirin 81mg and clopidogrel 75mg daily x21 days. After 21 days, discontinue clopidogrel and continue aspirin 81mg daily only.
-TTE pending. Would appreciate Cardiology input regarding care home cardiac monitoring as this appears to be another cardioembolic event.
-Goal normotension.
-LDL goal <70. LDL is 42. Continue home atorvastatin 40mg daily.
-Goal normoglycemia, hbA1c is 5.9.
-NIHSS and neurological checks per unit guidelines.
-Provide patient with a stroke education packet.
-PT/OT/ST evaluations.
-DVT prophylaxis.
Subjective/Objective
Subjective Data
Date of Service: January 30, 2025
No acute events overnight. Patient with ongoing right facial drooping and severe dysarthria. He notes that his symptoms have improved slightly.
Objective Data
Vital Signs
Temp Pulse Resp BP Pulse Ox
98.0 F 56 22 150/84 95
01/30/25 12:00 01/30/25 10:30 01/30/25 09:34 01/30/25 09:34 01/30/25 09:00
Lab Results
01/30/25 03:31
01/30/25 03:31
PT 14.2 Sec (11.4-14.6) 01/30/25 03:31
INR 1.07 01/30/25 03:31
APTT 36.0 Sec (23.4-35.0) H 01/30/25 03:31
Sodium 137 mmol/L (135-145) 01/30/25 03:31
Potassium 3.9 mmol/L (3.5-5.1) 01/30/25 03:31
BUN 21 mg/dl (9-20) H 01/30/25 03:31
Glucose 120 mg/dl (70-99) H 01/30/25 03:31
Calcium 9.1 mg/dl (8.4-10.2) 01/30/25 03:31
Phosphorus Cancelled 01/30/25 06:00
LDL Cholesterol, Calc 42 mg/dl 01/30/25 03:31
Patient Allergies
amoxicillin Allergy (Verified 01/29/25 08:45)
Rash
latex Allergy (Verified 01/29/25 08:45)
Rash
LDL Level: <70, continue statin
Review of Systems
-
History Source: Patient
EENT: Swallowing Difficulty; Negative Blurry Vision or Decreased Vision
Neuro: Speech Problem; Negative Dizzy, Headache, Weakness, Numbness, Ataxia or Tremors
Physical Exam
-
General: No Apparent Distress
Eyes: No Ptosis and PERRLA
GI: Non-distended
Extremities: No Clubbing, No Cyanosis and No Edema
Extended Neurological Exam
Mood & Affect: Mood Unremarkable and Affect Unremarkable
Attention Span & Concentration: Awake, Alert and Interactive
Memory: Unremarkable and Able to Recall
Tremor: Hand Tremor Absent and Head Tremor Absent
Involuntary Movement: None
Speech: Expressive Aphasia and Dysarthric; Negative Receptive Aphasia
Cranial Nerve II: Left Eye: Visual Ross Reduced (RLQ field cut)
Cranial Nerve II: Right Eye: Visual Ross Reduced (RLQ field cut)
Cranial Nerves III, IV, : Extraocular Movement: Extraocular Movement Full in all Directions
Cranial Nerve VII: Facial Symmetry: Reduced (right facial drooping)
Cranial Nerve VIII: Hearing: Unremarkable Hearing to Normal Conversational Volume
Cranial Nerve XI: Shoulder Shrug: Unremarkable
Muscle Strength, Overall: Full Throughout
Pronator Drift: No Drift in Upper Extremities and No Drift in Lower Extremities
Touch Sensation: Double Simultaneous Stimulation Unremarkable
Coordination: Dqaziz-wooz-fkddzb Testing Unremarkable
Modified Anatoliy Score (MRS)
-
Modified Cuming Scale (mRS): Moderate disability. Requires some help, able to walk unassisted.
Score: 3
Data Reviewed
-
CT-A: Report Reviewed and Image Reviewed
CT-Perfusion: Report Reviewed and Image Reviewed
CT Head: Report Reviewed and Image Reviewed
MRI Head: Report Reviewed and Image Reviewed
Echocardiogram: Pending
Labs: Report Reviewed
Lipid Profile: Report Reviewed
HgbA1C: Report Reviewed
Reviewed with: Physician and Patient
Medications
-
Active Medications
Generic Name Dose Route Start Last Admin
Trade Name Freq PRN Reason Stop Dose Admin
Aspirin 300 mg 01/30/25 13:00
Aspirin 300 Mg Rectal Suppository RECTAL 02/27/25 12:59
DAILY CHARLY
Atorvastatin Calcium 40 mg 01/29/25 22:00 01/29/25 20:25
Atorvastatin (Lipitor) 40 Mg Tablet PO 02/26/25 21:59 40 mg
On Hold: 01/30/25 12:56 HS CHARLY Administration
Brimonidine Tartrate 0 drop 01/29/25 20:00 01/30/25 08:19
Brimonidine 0.2% (Ophthalmic Solution) Bottle BOTH EYES 02/26/25 19:59 1 drop
BID CHARLY Administration
Escitalopram Oxalate 10 mg 01/30/25 08:00 01/30/25 08:15
Escitalopram 10 Mg Tablet PO 02/27/25 07:59 10 mg
On Hold: 01/30/25 12:56 DAILY CHARLY Administration
Hydralazine HCl 10 mg 01/29/25 14:28
Hydralazine 20 Mg/Ml Vial IV 02/26/25 14:27
Q4HPRN PRN
FOR SBP > 180 or DBP > 105
Latanoprost 0 drop 01/29/25 22:00 01/29/25 20:31
Latanoprost 0.005% (Ophthalmic Solution) 2.5 Ml Bottle BOTH EYES 02/26/25 21:59 1 drop
HS CHARLY Administration
Senna/Docusate Sodium 2 tablet 01/29/25 15:40 01/29/25 20:25
Docusate W/Senna (Sonam-Colace) Tablet PO 02/26/25 15:39 2 tablet
HSPRN PRN Administration
constipation
Timolol Maleate 0 drop 01/29/25 20:00 01/30/25 08:18
Timolol 0.5% (Ophthalmic Solution) Bottle BOTH EYES 02/26/25 19:59 1 drop
BID CHARLY Administration
Home Medications
�Medication �Instructions �Recorded
desloratadine 5 mg tablet 5 mg PO QHS Allergies 01/21/22
Prevagen 1 tab PO DAILY Supplement 12/31/23
sennosides 8.6 mg tablet (senna) 8.6 mg PO BIDPRN PRN constipation 12/31/23
vitamins A,C,A-nrmn-iwghwt 2,148 1 tab PO DAILY Supplement 12/31/23
mcg-113 mg-45 mg-17.4 mg tablet
(PreserVision AREDS)
aspirin 81 mg tablet,delayed 162 mg PO ONCE CVA symptoms 01/29/25
release
atorvastatin 40 mg tablet 40 mg PO HS High Cholesterol 01/29/25
bimatoprost 0.01 % eye drops 1 drp BOTH EYES QPM Eye Condition 01/29/25
(Lumigan)
brimonidine 0.2 %-timolol 0.5 % 1 drp BOTH EYES BID Eye Condition 01/29/25
eye drops (Combigan)
escitalopram oxalate 10 mg tablet 10 mg PO DAILY Mental 01/29/25
(Lexapro) Health/Anxiety
ibuprofen 200 mg tablet 200 mg PO Q6H PRN mild pain 01/29/25
--- NOTE | 2025-01-30 14:21 | CM ---
Discharge POC: Therapy recommendation for Acute Rehab. [employer] list provided to and patient. Preferences are: [facility]. Referrals forwarded.
[2025-01-30] MEDS: PLAVIX 75 MG TUBE (16:08)
[2025-01-30] MEDS: LOW STRENGTH ASPIRIN 81 MG TUBE (16:08)
--- NOTE | 2025-01-30 16:14 | PTCARENOTE ---
Report called to 3rd floor. Pt to transfer to Room 321. Right nare dhf placed previously...no issue. CXR done to confirm placement. ASA and plavix given prior to transfer.
--- NOTE | 2025-01-30 16:52 | PTCARENOTE ---
pt transferred from ICU to 321 AOx3. NIH score with ICE CREAM SCOOPER (see flowchart) LCTA B/L on RA. abd soft NT rizwan in place right nare 70cm. +BSx4. skin CDI. No edema +PP B/L. CB in reach instructed on use.
[2025-01-30] MEDS: LOVENOX 40 MG SC (16:57)
[2025-01-30] MEDS: LIPITOR 40 MG TUBE (20:16)
[2025-01-30] MEDS: XALATAN OPHTHALMIC SOLUTION 1 DROP BOTH EYES (21:23)
[2025-01-31] VITALS (8 sets, daily range): BP systolic 131–152; BP diastolic 74–89; PULSE 58; BMI 31.6
[2025-01-31 07:09] LABS: Hematocrit 34.9 % (39.0-52.0); Hemoglobin 12.1 g/dL (13.0-18.0); Mean Corp Hgb Conc. 34.7 g/dL (33.0-37.0); Mean Corpuscular Volume 89.5 fL (80.0-94.0); Platelet Count 174 10^3/uL (130-400); Red Cell Dist. Width 13.3 % (11.5-14.5)
[2025-01-31 07:18] LABS: Blood Urea Nitrogen 22 mg/dl (9-20); Calcium 9.1 mg/dl (8.4-10.2); Carbon Dioxide 26 mmol/L (22-30); Chloride 103 mmol/L (98-107); Estimated Creatinine Clearance 56 ml/min; Glucose 120 mg/dl (70-99); Potassium 3.7 mmol/L (3.5-5.1); Sodium 136 mmol/L (135-145); eGFR > 60.00
[2025-01-31] MEDS: PLAVIX 75 MG TUBE (08:21)
[2025-01-31] MEDS: LOW STRENGTH ASPIRIN 81 MG TUBE (08:21)
[2025-01-31] MEDS: XALATAN OPHTHALMIC SOLUTION BOTH EYES (08:23)
[2025-01-31] MEDS: ALPHAGAN 0.2% EYE DROPS 1 DROP BOTH EYES ×2 (08:24→20:01)
[2025-01-31] MEDS: TIMOPTIC 0.5% OPHTHALMIC SOLUTION 1 DROP BOTH EYES ×2 (08:24→20:02)
--- NOTE | 2025-01-31 11:33 | W.PN.HOSP.TC ---
Today's Communication/Plan
-
see note
Assessment / Plan
Assessment / Plan
MR brain
Acute left lateral frontal lobe ischemic infarct. No mass effect.
Additional chronic infarcts, chronic microvascular white matter ischemic disease, and atrophy. Mild acute right maxillary sinusitis.
1. Acute CVA
Status post TNK in ER
- Came with new onset of right facial droop and slurring of words.
- CT head and CT head not did not show any acute abnormality
- Patient with history of occipital stroke in 2019
- Neurology evaluated and patient was provided TNK in ER
- MRI brain showing left lateral frontal lobe ischemic infarct. Images reviewed personally.
- Lipid profile - TC 103 LDL 42, A1c 5.9
- Patient failed speech therapy evaluation. VSE done and patient aspirating on all food as well.
- Dobbhoff tube has been placed and patient is currently on tube feed. Daily speech therapy evaluation for improvement monitoring. Patient may end up requiring PEG tube if not able to be cleared for oral food in next 48-72hrs
- Patient has been started on dual antiplatelet aspirin/Plavix through Dobbhoff tube. Statin through Dobbhoff tube as well
- Neuro requested outpatient Holter monitoring, cardiology notified off consult for input
- PT evaluated and recommended acute rehab placement. Physiatry consult ordered
- Continue NIH/neurochecks
2. Essential hypertension
- Not on any medication at home. Monitor
- Will start for blood pressure control depending on vital trends
3. HLD
- maintain on Atorvastatin
History of kidney stone
History of left radical nephrectomy
History of lumbar spinal surgery
History of TURP
DVT PPX - scd
Full code
Discussed care plan with neuro
Anticipated Discharge: 24 - 48 hours
Subjective/Interval History
-
Date of Service: January 31, 2025
No new issues overnight
However Dobbhoff tube in place on TF
Objective Data
-
Labs:
Laboratory Results
01/31/25
06:06
WBC 6.2
Hgb 12.1 L
Hct 34.9 L
Plt Count 174
Sodium 136
Potassium 3.7
Chloride 103
Carbon Dioxide 26
BUN 22 H
Creatinine 1.2
Glucose 120 H
Calcium 9.1
Vital Signs:
Vital Signs
Temp Pulse Resp BP Pulse Ox
97.8 F 59 18 131/80 97
01/31/25 10:58 01/31/25 10:58 01/31/25 10:58 01/31/25 10:58 01/31/25 10:58
I&O
01/30/25 01/31/25 02/01/25
06:59 06:59 06:59
Intake Total 0 / 0 110 / 110
Output Total 800 / 800 775 / 775
Balance -800 / -800 -665 / -665
Review of Systems
-
Respiratory: Reports No Symptoms
Cardiac: Reports No Symptoms
Abdomen/GI: Reports No Symptoms
Physical Exam
-
General: Negative Appears in Distress
HEENT: Other (Dobhoff tube in place); Negative Oxygen
GI: Soft, Nontender and Nondistended
Neuro: Awake, Alert, Oriented, Facial Droop and Other (slurred speech)
Psych: Calm
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
[2025-01-31] MEDS: LOVENOX 40 MG SC (17:39)
[2025-01-31] MEDS: LIPITOR 40 MG TUBE (21:00)
[2025-01-31] MEDS: XALATAN OPHTHALMIC SOLUTION 1 DROP BOTH EYES (21:02)
[2025-02-01 02:53] VITALS: BP 133/71
[2025-02-01 07:00] VITALS: BP 145/86
[2025-02-01] MEDS: PLAVIX 75 MG TUBE (07:58)
[2025-02-01] MEDS: LOW STRENGTH ASPIRIN 81 MG TUBE (07:58)
[2025-02-01] MEDS: TIMOPTIC 0.5% OPHTHALMIC SOLUTION BOTH EYES (08:02)
[2025-02-01] MEDS: ALPHAGAN 0.2% EYE DROPS BOTH EYES (08:02)
[2025-02-01 10:46] VITALS: BP 161/81; BP 163/86; PULSE 66; O2SAT 97
[2025-02-01 11:00] VITALS: BP 128/84
--- NOTE | 2025-02-01 13:20 | W.PN.HOSP.TC ---
Today's Communication/Plan
-
repeat ST evaluation
maintain on TF
flutter valve for increased secretion
Assessment / Plan
Assessment / Plan
MR brain
Acute left lateral frontal lobe ischemic infarct. No mass effect.
Additional chronic infarcts, chronic microvascular white matter ischemic disease, and atrophy. Mild acute right maxillary sinusitis.
1. Acute CVA
Status post TNK in ER
- Came with new onset of right facial droop and slurring of words.
- CT head and CT head not did not show any acute abnormality
- Patient with history of occipital stroke in 2019
- Neurology evaluated and patient was provided TNK in ER
- MRI brain showing left lateral frontal lobe ischemic infarct. Images reviewed personally.
- Lipid profile - TC 103 LDL 42, A1c 5.9
- Patient failed speech therapy evaluation. VSE done and patient aspirating on all food texture as well.
- Dobbhoff tube has been placed and patient is currently on tube feed. Daily speech therapy evaluation for improvement monitoring. Patient may end up requiring PEG tube if not able to be cleared for oral food in next 48-72hrs
- Patient has been started on dual antiplatelet aspirin/Plavix through Dobbhoff tube. Statin through Dobbhoff tube as well
- Neuro requested outpatient Holter monitoring, cardiology notified off consult for input
- PT evaluated and recommended acute rehab placement. Physiatry input noted.
- Discontinue further neuro/NIH checks
2. Essential hypertension
- Not on any medication at home. Monitor
- Will start for blood pressure control depending on vital trends
3. HLD
- maintain on Atorvastatin
History of kidney stone
History of left radical nephrectomy
History of lumbar spinal surgery
History of TURP
DVT PPX - scd
Full code
Anticipated Discharge: > 48 hours
Subjective/Interval History
-
Date of Service: February 01, 2025
Have some increased phlegm production
Speech is bit better and words are clear sounding
no other issues reported
Objective Data
-
Vital Signs:
Vital Signs
Temp Pulse Resp BP Pulse Ox
97.5 F 77 18 128/84 96
02/01/25 11:00 02/01/25 11:00 02/01/25 11:00 02/01/25 11:00 02/01/25 11:00
I&O
01/31/25 02/01/25 02/02/25
06:59 06:59 06:59
Intake Total 110 / 110
Output Total 775 / 775 795 / 795
Balance -665 / -665 -795 / -795
Review of Systems
-
Respiratory: Reports No Symptoms
Cardiac: Reports No Symptoms
Abdomen/GI: Reports No Symptoms
Physical Exam
-
General: Negative Appears in Distress
HEENT: Other (Dobhoff tube in place); Negative Oxygen
Respiratory: Clear to Auscultation
Cardiac: Regular Rhythm and S1/S2; Negative Murmur
Neuro: Awake, Alert, Oriented, Facial Droop and Other (slurred speech)
Psych: Calm
[2025-02-01 15:47] VITALS: BP 135/87
[2025-02-01] MEDS: LOVENOX 40 MG SC (17:21)
[2025-02-01 20:08] VITALS: BP 137/84
[2025-02-01] MEDS: NSS (PRESERVATIVE FREE) 10 ML IV (20:52)
[2025-02-01] MEDS: PROTONIX IV 40 MG IV (20:53)
[2025-02-01] MEDS: ALPHAGAN 0.2% EYE DROPS 1 DROP BOTH EYES (20:54)
[2025-02-01] MEDS: TIMOPTIC 0.5% OPHTHALMIC SOLUTION 1 DROP BOTH EYES (20:54)
[2025-02-01] MEDS: LIPITOR 40 MG TUBE (21:03)
[2025-02-01] MEDS: XALATAN OPHTHALMIC SOLUTION 1 DROP BOTH EYES (21:03)
[2025-02-02] VITALS (9 sets, daily range): BP systolic 123–145; BP diastolic 59–84; PULSE 67–69; O2SAT 97–98
[2025-02-02 06:47] LABS: Blood Urea Nitrogen 28 mg/dl (9-20); Calcium 9.2 mg/dl (8.4-10.2); Carbon Dioxide 27 mmol/L (22-30); Chloride 103 mmol/L (98-107); Estimated Creatinine Clearance 52 ml/min; Glucose 134 mg/dl (70-99); Magnesium 2.0 mg/dl (1.6-2.3); Potassium 3.9 mmol/L (3.5-5.1); Sodium 136 mmol/L (135-145); eGFR 55.53
[2025-02-02 08:27] LABS: Hematocrit 33.3 % (39.0-52.0); Hemoglobin 11.8 g/dL (13.0-18.0); Mean Corp Hgb Conc. 35.4 g/dL (33.0-37.0); Mean Corpuscular Volume 90.0 fL (80.0-94.0); Platelet Count 172 10^3/uL (130-400); Red Cell Dist. Width 13.4 % (11.5-14.5)
[2025-02-02] MEDS: PLAVIX 75 MG TUBE (08:58)
[2025-02-02] MEDS: TIMOPTIC 0.5% OPHTHALMIC SOLUTION BOTH EYES (08:59)
[2025-02-02] MEDS: ALPHAGAN 0.2% EYE DROPS BOTH EYES (08:59)
[2025-02-02] MEDS: LOW STRENGTH ASPIRIN 81 MG TUBE (08:59)
--- NOTE | 2025-02-02 11:43 | W.PN.HOSP.TC ---
Today's Communication/Plan
-
repeat VSE on Wed
continue TF and daily Speech eval
Assessment / Plan
Assessment / Plan
MR brain
Acute left lateral frontal lobe ischemic infarct. No mass effect.
Additional chronic infarcts, chronic microvascular white matter ischemic disease, and atrophy. Mild acute right maxillary sinusitis.
1. Acute CVA
Status post TNK in ER
- Came with new onset of right facial droop and slurring of words.
- CT head and CT head not did not show any acute abnormality
- Patient with history of occipital stroke in 2019
- Neurology evaluated and patient was provided TNK in ER
- MRI brain showing left lateral frontal lobe ischemic infarct. Images reviewed personally.
- Lipid profile - TC 103 LDL 42, A1c 5.9
- Patient has been started on dual antiplatelet aspirin/Plavix through Dobbhoff tube. Statin through Dobbhoff tube as well
- Neuro requested outpatient Holter monitoring, cardiology notified off consult for input
- PT evaluated and recommended acute rehab placement. Physiatry input noted.
- Discontinue further neuro/NIH checks
- Patient failed speech therapy evaluation. VSE done and patient aspirating on all food texture as well.
- Dobbhoff tube has been placed and patient is currently on tube feed. Discussed with speech therapy and repeat VSE will be done on Wednesday to evaluate for swallow function recovery - if fails will need to go for PEG tube placement
2. Essential hypertension
- Not on any medication at home. Monitor
- Will start for blood pressure control depending on vital trends
3. HLD
- maintain on Atorvastatin
History of kidney stone
History of left radical nephrectomy
History of lumbar spinal surgery
History of TURP
DVT PPX - scd
Full code
Anticipated Discharge: > 48 hours
Subjective/Interval History
-
Date of Service: February 02, 2025
No new complaints overnight
Continues to remain on TF
denies of excessive cough/pharyngeal secretions
Objective Data
-
Labs:
Laboratory Results
02/02/25
05:51
WBC 7.6
Hgb 11.8 L
Hct 33.3 L
Plt Count 172
Sodium 136
Potassium 3.9
Chloride 103
Carbon Dioxide 27
BUN 28 H
Creatinine 1.3
Glucose 134 H
Calcium 9.2
Vital Signs:
Vital Signs
Temp Pulse Resp BP Pulse Ox
97.8 F 61 16 141/78 98
02/02/25 10:58 02/02/25 10:58 02/02/25 10:58 02/02/25 10:58 02/02/25 10:58
I&O
02/01/25 02/02/25 02/03/25
06:59 06:59 06:59
Intake Total 120 / 120
Output Total 795 / 795 600 / 600
Balance -795 / -795 -480 / -480
Review of Systems
-
Respiratory: Reports No Symptoms
Cardiac: Reports No Symptoms
Abdomen/GI: Reports No Symptoms
Physical Exam
-
General: Negative Appears in Distress
HEENT: Other (Dobhoff tube in place); Negative Oxygen
Respiratory: Clear to Auscultation
Cardiac: Regular Rhythm and S1/S2; Negative Murmur
Neuro: Awake, Alert, Oriented, Facial Droop and Other (slurred speech)
Psych: Calm
--- NOTE | 2025-02-02 12:39 | CM ---
Referrals sent to [facility], [facility], [facility] and [facility] for consideration. [facility] and [facility] have accepted pending diet plan (PO vs. PEG) [facility] will not be accepted. [facility] has not yet accepted the
referral.
Plan: CM will continue to follow to coordinate transfer to [facility] pending medical stability, acceptable diet plan, and accepting facility.
[2025-02-02] MEDS: LOVENOX 40 MG SC (18:02)
[2025-02-02] MEDS: ALPHAGAN 0.2% EYE DROPS 1 DROP BOTH EYES (20:23)
[2025-02-02] MEDS: TIMOPTIC 0.5% OPHTHALMIC SOLUTION 1 DROP BOTH EYES (20:23)
[2025-02-02] MEDS: XALATAN OPHTHALMIC SOLUTION 1 DROP BOTH EYES (20:23)
[2025-02-02] MEDS: LIPITOR 40 MG TUBE (20:24)
[2025-02-03] VITALS (7 sets, daily range): BP systolic 119–187; BP diastolic 66–86; PULSE 65; O2SAT 98
[2025-02-03] MEDS: TIMOPTIC 0.5% OPHTHALMIC SOLUTION 1 DROP BOTH EYES ×2 (08:51→20:15)
[2025-02-03] MEDS: LOW STRENGTH ASPIRIN 81 MG TUBE (08:51)
[2025-02-03] MEDS: PLAVIX 75 MG TUBE (08:51)
[2025-02-03] MEDS: ALPHAGAN 0.2% EYE DROPS 1 DROP BOTH EYES ×2 (08:52→20:16)
--- NOTE | 2025-02-03 11:21 | W.PN.HOSP.TC ---
Today's Communication/Plan
-
VSE on Wednesday
continue current measures
Assessment / Plan
Assessment / Plan
MR brain
Acute left lateral frontal lobe ischemic infarct. No mass effect.
Additional chronic infarcts, chronic microvascular white matter ischemic disease, and atrophy. Mild acute right maxillary sinusitis.
1. Acute CVA
Status post TNK in ER
- Came with new onset of right facial droop and slurring of words.
- CT head and CT head not did not show any acute abnormality
- Patient with history of occipital stroke in 2019
- Neurology evaluated and patient was provided TNK in ER
- MRI brain showing left lateral frontal lobe ischemic infarct. Images reviewed personally.
- Lipid profile - TC 103 LDL 42, A1c 5.9
- Patient has been started on dual antiplatelet aspirin/Plavix through Dobbhoff tube. Statin through Dobbhoff tube as well
- Neuro requested outpatient Holter monitoring, cardiology notified off consult for input
- PT evaluated and recommended acute rehab placement. Physiatry input noted.
- Discontinue further neuro/NIH checks
- Patient failed speech therapy evaluation. VSE done and patient aspirating on all food texture as well.
- Dobbhoff tube has been placed and patient is currently on tube feed. Discussed with speech therapy and repeat VSE will be done on Wednesday to evaluate for swallow function recovery - if fails will need to go for PEG tube placement
2. Essential hypertension
- Not on any medication at home. Monitor
- Will start for blood pressure control depending on vital trends
3. HLD
- maintain on Atorvastatin
History of kidney stone
History of left radical nephrectomy
History of lumbar spinal surgery
History of TURP
DVT PPX - scd
Full code
Anticipated Discharge: > 48 hours
Subjective/Interval History
-
Date of Service: February 03, 2025
Speech is more coherent today
Still have some pharyngeal secretion pooling/gurgling while talking
No acute issues reported
Objective Data
-
Vital Signs:
Vital Signs
Temp Pulse Resp BP Pulse Ox
97.4 F 54 18 122/84 99
02/03/25 11:05 02/03/25 11:05 02/03/25 11:05 02/03/25 11:05 02/03/25 11:05
I&O
02/02/25 02/03/25 02/04/25
06:59 06:59 06:59
Intake Total 120 / 120 1140 / 1140
Output Total 600 / 600
Balance -480 / -480 1140 / 1140
Review of Systems
-
Respiratory: Reports Cough; Denies Trouble Breathing
Cardiac: Reports No Symptoms
Abdomen/GI: Reports No Symptoms
Physical Exam
-
General: Negative Appears in Distress
HEENT: Other (Dobhoff tube in place); Negative Oxygen
Neuro: Awake, Alert, Oriented, Facial Droop and Other (slurred speech)
Psych: Calm
[2025-02-03] MEDS: TYLENOL 650 MG PO (17:54)
[2025-02-03] MEDS: TORADOL 15 MG IV (18:04)
[2025-02-03] MEDS: LOVENOX 40 MG SC (18:06)
--- NOTE | 2025-02-03 19:30 | PTCARENOTE ---
Assumed care of patient from previous RN, patient reports headache relief from Tylenol and Toradol dosing and remains comfortable at this time. Tube feeds maintained at goal rate. Patient remains at NIH score of 4 for right side facial droop, mild
aphasia and mild slurring of speech. Patient is inquiring on medication tonight to aid in sleep, notified THOMAS Nieto of request, awaiting further instruction. Call lawrence in reach, will monitor.
[2025-02-03] MEDS: XALATAN OPHTHALMIC SOLUTION 1 DROP BOTH EYES (20:15)
[2025-02-03] MEDS: LIPITOR 40 MG TUBE (21:24)
--- NOTE | 2025-02-03 21:30 | PTCARENOTE ---
Patient c/o difficulty sleeping since being admitted, complicated further from screaming of other patients across the berry. OIL WELL LOGGING ENGINEER placed orders for Melatonin HS -- obtained dosing and provided to patient. Patient awake during rounding, but states 'I
was sleeping, I just woke up now. I will be going back to sleep.' Will monitor.
[2025-02-03] MEDS: MELATONIN 3 MG PO (21:33)
[2025-02-04] VITALS (7 sets, daily range): BP systolic 123–140; BP diastolic 70–84; PULSE 66; O2SAT 100
[2025-02-04] MEDS: TORADOL 15 MG IV (06:41)
--- NOTE | 2025-02-04 06:49 | PTCARENOTE ---
Patient c/o severe back pain upon waking this morning and requesting dose of Toradol, states that is what helped his pain yesterday. In addition, patient c/o burning with urination. Notified THOMAS Nieto, Toradol ordered and provided. UA reflex to
culture ordered.
[2025-02-04 06:52] LABS: Hematocrit 33.1 % (39.0-52.0); Hemoglobin 11.3 g/dL (13.0-18.0); Mean Corp Hgb Conc. 34.1 g/dL (33.0-37.0); Mean Corpuscular Volume 93.0 fL (80.0-94.0); Platelet Count 147 10^3/uL (130-400); Red Cell Dist. Width 13.2 % (11.5-14.5)
[2025-02-04 07:15] LABS: Blood Urea Nitrogen 35 mg/dl (9-20); Calcium 9.3 mg/dl (8.4-10.2); Carbon Dioxide 29 mmol/L (22-30); Chloride 102 mmol/L (98-107); Estimated Creatinine Clearance 52 ml/min; Glucose 129 mg/dl (70-99); Potassium 4.4 mmol/L (3.5-5.1); Sodium 134 mmol/L (135-145); eGFR 55.53
[2025-02-04] MEDS: LOW STRENGTH ASPIRIN 81 MG TUBE (08:29)
[2025-02-04] MEDS: PLAVIX 75 MG TUBE (08:29)
[2025-02-04] MEDS: TIMOPTIC 0.5% OPHTHALMIC SOLUTION 1 DROP BOTH EYES ×2 (08:30→21:09)
[2025-02-04] MEDS: ALPHAGAN 0.2% EYE DROPS 1 DROP BOTH EYES ×2 (08:31→21:08)
[2025-02-04 09:03] LABS: Urine Character Clear (Clear)
[2025-02-04 09:16] LABS: Urine Squamous Cell 21-25 /LPF (Few)
[2025-02-04 09:17] LABS: Urine Red Blood Cell 0-2 /HPF (0-2)
--- NOTE | 2025-02-04 11:45 | W.PN.HOSP.TC ---
Today's Communication/Plan
-
for VSE tomorrow
continue other care plan
eventual [facility]
Assessment / Plan
Assessment / Plan
MR brain
Acute left lateral frontal lobe ischemic infarct. No mass effect.
Additional chronic infarcts, chronic microvascular white matter ischemic disease, and atrophy. Mild acute right maxillary sinusitis.
1. Acute CVA
Status post TNK in ER
- Came with new onset of right facial droop and slurring of words.
- CT head and CT head not did not show any acute abnormality
- Patient with history of occipital stroke in 2019
- Neurology evaluated and patient was provided TNK in ER
- MRI brain showing left lateral frontal lobe ischemic infarct. Images reviewed personally.
- Lipid profile - TC 103 LDL 42, A1c 5.9
- Patient has been started on dual antiplatelet aspirin/Plavix through Dobbhoff tube. Statin through Dobbhoff tube as well
- Neuro requested outpatient Holter monitoring, cardiology notified off consult for input
- PT evaluated and recommended acute rehab placement. Physiatry input noted.
- Discontinue further neuro/NIH checks
- Patient failed speech therapy evaluation. VSE done and patient aspirating on all food texture as well.
- Dobbhoff tube has been placed and patient is currently on tube feed. Discussed with speech therapy and repeat VSE will be done on Wednesday to evaluate for swallow function recovery - if fails will need to go for PEG tube placement
2. Essential hypertension
- Not on any medication at home. Monitor
- Will start for blood pressure control depending on vital trends
3. HLD
- maintain on Atorvastatin
4. Back pain
- managed with tylenol prn, required to be given Toradol due to significant pain last night
History of kidney stone
History of left radical nephrectomy
History of lumbar spinal surgery
History of TURP
DVT PPX - scd
Full code
Patient daughter at bedside and updated about care plan. Patient is planned to have VSE tomorrow
Anticipated Discharge: 24 - 48 hours
Subjective/Interval History
-
Date of Service: February 04, 2025
Was complaining severe back pain last night improved with Tylenol/Toradol
No new worsening of neurological findings
Objective Data
-
Labs:
Laboratory Results
02/04/25
06:40
WBC 7.5
Hgb 11.3 L
Hct 33.1 L
Plt Count 147
Sodium 134 L
Potassium 4.4
Chloride 102
Carbon Dioxide 29
BUN 35 H
Creatinine 1.3
Glucose 129 H
Calcium 9.3
Vital Signs:
Vital Signs
Temp Pulse Resp BP Pulse Ox
97.6 F 60 18 128/75 96
02/04/25 11:00 02/04/25 11:00 02/04/25 11:00 02/04/25 11:00 02/04/25 11:00
I&O
02/03/25 02/04/25 02/05/25
06:59 06:59 06:59
Intake Total 1140 / 1140
Output Total 1000 / 1000
Balance 1140 / 1140 -1000 / -1000
Review of Systems
-
Respiratory: Reports No Symptoms
Cardiac: Reports No Symptoms
Abdomen/GI: Reports No Symptoms
Physical Exam
-
General: Negative Appears in Distress
HEENT: Other (Dobhoff tube in place); Negative Oxygen
Neuro: Awake, Alert, Oriented, Facial Droop and Other (slurred speech)
Psych: Calm
[2025-02-04] MEDS: LOVENOX 40 MG SC (18:20)
[2025-02-04] MEDS: XALATAN OPHTHALMIC SOLUTION 1 DROP BOTH EYES (21:08)
[2025-02-04] MEDS: MELATONIN 3 MG PO (21:09)
[2025-02-04] MEDS: LIPITOR 40 MG TUBE (21:09)
[2025-02-05] VITALS (7 sets, daily range): BP systolic 129–147; BP diastolic 63–80; PULSE 66; O2SAT 96
[2025-02-05 07:08] LABS: Hematocrit 32.6 % (39.0-52.0); Hemoglobin 11.4 g/dL (13.0-18.0); Mean Corp Hgb Conc. 35.0 g/dL (33.0-37.0); Mean Corpuscular Volume 91.3 fL (80.0-94.0); Platelet Count 159 10^3/uL (130-400); Red Cell Dist. Width 13.2 % (11.5-14.5)
[2025-02-05 07:30] LABS: Blood Urea Nitrogen 33 mg/dl (9-20); Calcium 9.0 mg/dl (8.4-10.2); Carbon Dioxide 29 mmol/L (22-30); Chloride 101 mmol/L (98-107); Estimated Creatinine Clearance 52 ml/min; Glucose 119 mg/dl (70-99); Potassium 4.3 mmol/L (3.5-5.1); Sodium 135 mmol/L (135-145); eGFR 55.53
[2025-02-05] MEDS: TIMOPTIC 0.5% OPHTHALMIC SOLUTION 1 DROP BOTH EYES ×2 (08:50→19:37)
[2025-02-05] MEDS: ALPHAGAN 0.2% EYE DROPS 1 DROP BOTH EYES ×2 (08:50→19:36)
[2025-02-05] MEDS: LOW STRENGTH ASPIRIN 81 MG TUBE (08:53)
[2025-02-05] MEDS: PLAVIX 75 MG TUBE (08:53)
--- NOTE | 2025-02-05 09:46 | W.PN.HOSP.TC ---
Today's Communication/Plan
-
Diet upgraded
Awaiting [facility] placement
Assessment / Plan
Assessment / Plan
Physical Exam
General: Negative Appears in Distress
HEENT: Other (Dobhoff tube in place); Negative Oxygen
Neuro: Awake, Alert, Oriented, Facial Droop and Other (slurred speech)
Psych: Calm
Assessment/Plan
MR brain
Acute left lateral frontal lobe ischemic infarct. No mass effect.
Additional chronic infarcts, chronic microvascular white matter ischemic disease, and atrophy. Mild acute right maxillary sinusitis.
1. Acute CVA
Status post TNK in ER
- Came with new onset of right facial droop and slurring of words.
- CT head and CT head not did not show any acute abnormality
- Patient with history of occipital stroke in 2019
- Neurology evaluated and patient was provided TNK in ER
- MRI brain showing left lateral frontal lobe ischemic infarct. Images reviewed personally.
- Lipid profile - TC 103 LDL 42, A1c 5.9
- Patient has been started on dual antiplatelet aspirin/Plavix through Dobbhoff tube. Statin through Dobbhoff tube as well
- Neuro requested outpatient Holter monitoring, cardiology notified off consult for input
- PT evaluated and recommended acute rehab placement. Physiatry input noted.
- Discontinue further neuro/NIH checks
- Patient failed speech therapy evaluation. VSE done and patient aspirating on all food texture as well.
- Dobbhoff tube has been placed and patient is currently on tube feed. Discussed with speech therapy and repeat VSE will be done on Wednesday to evaluate for swallow function recovery - if fails will need to go for PEG tube placement
2. Essential hypertension
- Not on any medication at home. Monitor
- Will start for blood pressure control depending on vital trends -- but BP currently stable
3. Hyperlipidemia
- maintain on Atorvastatin
4. Back pain
- managed with tylenol prn, required to be given Toradol due to significant pain last night
History of kidney stone
History of left radical nephrectomy
History of lumbar spinal surgery
History of TURP
DVT Prophylaxis: SCDsJarett Joex.
Speech/Diet: As of 02/05/25, repeat VSE completed on this patient -- he did better. Still some silent aspiration with thinner liquids and laryngeal penetration with moderately thick, but can clear majority of penetration with strategies. Recommended
to initiate regular solids/moderately thick liquids.
Code Status: Full code
Spoke to Honey
Anticipated Discharge: Within 24 hours
Subjective/Interval History
-
Date of Service: February 05, 2025
Patient was seen and examined. He was very happy he passed the swallowing test. He denied any new weakness, speech difficulty or numbness/tingling. His speech improved.
Objective Data
-
Labs:
Laboratory Results
02/05/25
06:19
WBC 7.3
Hgb 11.4 L
Hct 32.6 L
Plt Count 159
Sodium 135
Potassium 4.3
Chloride 101
Carbon Dioxide 29
BUN 33 H
Creatinine 1.3
Glucose 119 H
Calcium 9.0
Vital Signs:
Vital Signs
Temp Pulse Resp BP Pulse Ox
97.4 F 69 17 134/74 96
02/05/25 07:14 02/05/25 07:14 02/05/25 07:14 02/05/25 07:14 02/05/25 07:14
I&O
02/04/25 02/05/25 02/06/25
06:59 06:59 06:59
Intake Total 0 / 0
Output Total 1000 / 1000 1150 / 1150
Balance -1000 / -1000 -1150 / -1150
--- NOTE | 2025-02-05 12:35 | PTOTSP ---
Speech Language Pathology
VIDEOFLUOROSCOPIC SWALLOWING EXAMINATION (VSE) completed. Mild oral and mod pharyngeal dysphagia noted. Penetration/aspiration noted with liquids, and pt was able to clear majority of this with throat clear/reswallow. Suspect improved prognosis
with modified diet initiation with strategies vs continued NPO with PEG, as likely to result in disuse atrophy. Discussed risks of P.O. diet with pt, and he is in agreement to proceed with modified diet. Reviewed ARHP and importance of oral care
to mitigate aspiration of bacteria. Prognosis for diet tolerance is fair given (+) cognitive status, effectiveness of strategies, improvement since last VSE (-) acute CVA and deconditioning. Given silent aspiration, will need repeat instrumental
swallowing assessment in future prior to diet upgrade.
Recommend:
(1) Initiate Regular solids/moderately thick liquids
(2) Aspiration precautions: throat clear/reswallow every 5 bites/sips, slow rate, single sips, partial supervision
(3) Meds whole in puree
(4) Allow ice chips between meals post oral care per Aspiration Risk Hydration Protocol (ARHP)
(5) [employer] to continue to follow
--- NOTE | 2025-02-05 15:33 | CM ---
patient seen at bedside with
VSE today
updated Sushila from [facility]
PLAN: [facility] when stable
[2025-02-05] MEDS: LOVENOX 40 MG SC (17:37)
[2025-02-05] MEDS: XALATAN OPHTHALMIC SOLUTION 1 DROP BOTH EYES (21:06)
[2025-02-05] MEDS: MELATONIN 3 MG PO (21:06)
[2025-02-05] MEDS: LIPITOR 40 MG TUBE (21:06)
[2025-02-06 07:00] VITALS: BP 139/83
--- NOTE | 2025-02-06 07:38 | W.PN.HOSP.TC ---
Today's Communication/Plan
-
Discharge to [facility] today
Assessment / Plan
Assessment / Plan
Physical Exam
General: Negative Appears in Distress
HEENT: Other (Dobhoff tube in place); Negative Oxygen
Neuro: Awake, Alert, Oriented, Facial Droop and Other (slurred speech)
Psych: Calm
Assessment/Plan
MR brain
Acute left lateral frontal lobe ischemic infarct. No mass effect.
Additional chronic infarcts, chronic microvascular white matter ischemic disease, and atrophy. Mild acute right maxillary sinusitis.
1. Acute and Chronic Strokes on Brain MRI -- suspected cardioembolic -- presentation to the hospital on 01/29/25 with report of right facial drooping, dysarthria, and aphasia and is status post TNK
Status post TNK in ER
- Came with new onset of right facial droop and slurring of words.
- CT head and CT head not did not show any acute abnormality
- Patient with history of occipital stroke in 2019
- Neurology evaluated and patient was provided TNK in ER
- MRI brain showing left lateral frontal lobe ischemic infarct.
- Lipid profile - TC 103 LDL 42, A1c 5.9
- Patient has been started on dual antiplatelet aspirin/Plavix through Dobbhoff tube. Statin through Dobbhoff tube as well
- Can switch to oral medications on discharge -- Aspirin, Plavix and Statin -- after 21 days of DAPT, discontinue clopidogrel and continue aspirin 81mg daily only.
- Neuro requested outpatient 30-day Holter monitoring, cardiology notified off/curbside consult for input
- PT evaluated and recommended acute rehab placement. Physiatry input noted.
- Further neuro/NIH checks have been stopped
- Dobbhoff tube taken out on 02/05/25 as patient passed speech swallow and evaluation test on 02/05/25
- Patient will likely need continued speech and language pathology services following discharge
- Follow aspiration precautions: throat clear/re-swallow every 5 bites/sips, slow rate, single sips, partial supervision
2. Essential hypertension
- Not on any medication at home. Monitor
- Will start for blood pressure control depending on vital trends -- but BP currently stable
3. Hyperlipidemia
- maintain on Atorvastatin
4. Back pain
- managed with tylenol prn, required to be given Toradol due to significant pain last night
History of kidney stone
History of left radical nephrectomy
History of lumbar spinal surgery
History of TURP
DVT Prophylaxis: SCDs. Lovenox.
Speech/Diet: As of 02/05/25, repeat VSE completed on this patient -- he did better. Still some silent aspiration with thinner liquids and laryngeal penetration with moderately thick, but can clear majority of penetration with strategies. Recommended
to initiate regular solids/moderately thick liquids.
Code Status: Full code
More than 30 minutes spent in discharge including
Final examination of the patient
Summarizing hospital stay
Instructions for continuing care to all relevant caregivers
Preparation of discharge records, prescriptions, and referral forms
Total time spent (in minutes): 38
Anticipated Discharge: Today
Subjective/Interval History
-
Date of Service: February 06, 2025
Patient was seen and examined. He denied any new speech or swallowing issues, or any new weakness or tingling.
Objective Data
-
Labs:
Laboratory Results
02/06/25
07:08
WBC Pending
Hgb Pending
Hct Pending
Plt Count Pending
Sodium Pending
Potassium Pending
Chloride Pending
Carbon Dioxide Pending
BUN Pending
Creatinine Pending
Glucose Pending
Calcium Pending
Vital Signs:
Vital Signs
Temp Pulse Resp BP Pulse Ox
98.6 F 70 18 139/63 95
02/05/25 23:35 02/05/25 23:35 02/05/25 23:35 02/05/25 23:35 02/05/25 23:35
I&O
02/05/25 02/06/25 02/07/25
06:59 06:59 06:59
Intake Total 0 / 0 240 / 240
Output Total 1150 / 1150 575 / 575
Balance -1150 / -1150 -335 / -335
[2025-02-06 07:39] LABS: Hematocrit 35.2 % (39.0-52.0); Hemoglobin 11.5 g/dL (13.0-18.0); Mean Corp Hgb Conc. 32.7 g/dL (33.0-37.0); Mean Corpuscular Volume 95.1 fL (80.0-94.0); Platelet Count 159 10^3/uL (130-400); Red Cell Dist. Width 13.2 % (11.5-14.5)
[2025-02-06 08:06] LABS: Blood Urea Nitrogen 30 mg/dl (9-20); Calcium 9.0 mg/dl (8.4-10.2); Carbon Dioxide 31 mmol/L (22-30); Chloride 101 mmol/L (98-107); Estimated Creatinine Clearance 52 ml/min; Glucose 121 mg/dl (70-99); Potassium 5.1 mmol/L (3.5-5.1); Sodium 136 mmol/L (135-145); eGFR 55.53
[2025-02-06] MEDS: LOW STRENGTH ASPIRIN 81 MG TUBE (08:13)
[2025-02-06] MEDS: ALPHAGAN 0.2% EYE DROPS BOTH EYES (08:13)
[2025-02-06] MEDS: PLAVIX 75 MG TUBE (08:13)
[2025-02-06] MEDS: TIMOPTIC 0.5% OPHTHALMIC SOLUTION BOTH EYES (08:13)
[2025-02-06 09:10] VITALS: BP 141/71; PULSE 73; O2SAT 97
--- NOTE | 2025-02-06 12:11 | CM ---
patient seen at bedside
spoke with Sushila at [facility]
bed available today-after lunch
IMM explained and placed in chart.
left message with
PLAN: [facility]
Report #: [phone]
Fax #: [phone]
[2025-02-06 15:00] VITALS: BP 155/82
[2025-02-06 15:45] VITALS: BP 134/79; PULSE 75; O2SAT 99
[2025-02-06] MEDS: LOVENOX 40 MG SC (17:32)
[2025-02-06] MEDS: LIPITOR 40 MG TUBE (21:02)
[2025-02-06] MEDS: MELATONIN 3 MG PO (21:02)
[2025-02-06] MEDS: XALATAN OPHTHALMIC SOLUTION 1 DROP BOTH EYES (21:03)
[2025-02-06] MEDS: ALPHAGAN 0.2% EYE DROPS 1 DROP BOTH EYES (21:03)
[2025-02-06] MEDS: TIMOPTIC 0.5% OPHTHALMIC SOLUTION 1 DROP BOTH EYES (21:03)
[2025-02-06 23:46] VITALS: BP 112/66
[2025-02-07 07:00] VITALS: BP 124/84
--- NOTE | 2025-02-07 08:17 | W.PN.HOSP.TC ---
Today's Communication/Plan
-
Discharge to [facility] today
Assessment / Plan
Assessment / Plan
Physical Exam
General: Negative Appears in Distress
HEENT: Normocephalic
Neuro: Awake, Alert, Oriented, Facial Droop and Other (slurred speech) BOTH IMPROVED. Otherwise, the other cranial nerves, strength and sensation all grossly intact bilaterally.
Psych: Calm
Assessment/Plan
MR brain
Acute left lateral frontal lobe ischemic infarct. No mass effect.
Additional chronic infarcts, chronic microvascular white matter ischemic disease, and atrophy. Mild acute right maxillary sinusitis.
1. Acute and Chronic Strokes on Brain MRI -- suspected cardioembolic -- presentation to the hospital on 01/29/25 with report of right facial drooping, dysarthria, and aphasia and is status post TNK
Status post TNK in ER
- Came with new onset of right facial droop and slurring of words.
- CT head and CT head not did not show any acute abnormality
- Patient with history of occipital stroke in 2019
- Neurology evaluated and patient was provided TNK in ER
- MRI brain showing left lateral frontal lobe ischemic infarct.
- Lipid profile - TC 103 LDL 42, A1c 5.9
- Patient has been started on dual antiplatelet aspirin/Plavix through Dobbhoff tube. Statin through Dobbhoff tube as well
- Can switch to oral medications on discharge -- Aspirin, Plavix and Statin -- after 21 days of DAPT, discontinue clopidogrel and continue aspirin 81mg daily only.
- Neuro requested outpatient 30-day Holter monitoring, cardiology notified off/curbside consult for input
- PT evaluated and recommended acute rehab placement. Physiatry input noted.
- Further neuro/NIH checks have been stopped
- Dobbhoff tube taken out on 02/05/25 as patient passed speech swallow and evaluation test on 02/05/25
- Patient will likely need continued speech and language pathology services following discharge
- Follow aspiration precautions: throat clear/re-swallow every 5 bites/sips, slow rate, single sips, partial supervision
2. Essential hypertension
- Not on any medication at home. Monitor
- Will start for blood pressure control depending on vital trends -- but BP currently stable
3. Hyperlipidemia
- maintain on Atorvastatin
4. Back pain
- managed with tylenol prn, required to be given Toradol due to significant pain last night
History of kidney stone
History of left radical nephrectomy
History of lumbar spinal surgery
History of TURP
DVT Prophylaxis: SCDs. Lovenox.
Speech/Diet: As of 02/05/25, repeat VSE completed on this patient -- he did better. Still some silent aspiration with thinner liquids and laryngeal penetration with moderately thick, but can clear majority of penetration with strategies. Recommended
to initiate regular solids/moderately thick liquids.
Code Status: Full code
More than 30 minutes spent in discharge including
Final examination of the patient
Summarizing hospital stay
Instructions for continuing care to all relevant caregivers
Preparation of discharge records, prescriptions, and referral forms
Total time spent (in minutes): 35
Anticipated Discharge: Today
Subjective/Interval History
-
Date of Service: February 07, 2025
Patient was seen and examined. He denied any new numbness, tingling, chest pain, palpitations, fever or shortness of breath.
Objective Data
-
Vital Signs:
Vital Signs
Temp Pulse Resp BP Pulse Ox
97.6 F 68 18 124/84 99
02/07/25 07:00 02/07/25 07:00 02/07/25 07:00 02/07/25 07:00 02/07/25 07:00
I&O
02/06/25 02/07/25 02/08/25
06:59 06:59 06:59
Intake Total 240 / 240 1000 / 1000
Output Total 575 / 575 675 / 675
Balance -335 / -335 325 / 325
[2025-02-07] MEDS: PLAVIX 75 MG TUBE (08:34)
[2025-02-07] MEDS: LOW STRENGTH ASPIRIN 81 MG TUBE (08:34)
[2025-02-07] MEDS: TIMOPTIC 0.5% OPHTHALMIC SOLUTION 1 DROP BOTH EYES (08:35)
[2025-02-07] MEDS: ALPHAGAN 0.2% EYE DROPS 1 DROP BOTH EYES (08:35)
[2025-02-07] MEDS: TYLENOL 650 MG PO (08:46)
--- NOTE | 2025-02-07 10:09 | CM ---
Addendum entered by Carola Bates 02/07/25 14:35:
Per Sushila from [facility] - bed available today
tt hospitalist
notified patient/
PLAN: [facility] today
Report #: [phone]
Fax #: [phone]
Original Note:
spoke with Sushila from [facility] - awaiting for bed for the patient later today
Sushila will update CM
tt hospitalist
IMM signed yesterday. In chart
PLAN: [facility]
Report #: [phone]
Fax #: [phone]
[2025-02-07 11:11] VITALS: BP 105/69; PULSE 60; O2SAT 95
[2025-02-07 11:38] VITALS: BP 105/69; PULSE 60; O2SAT 95
[2025-02-07 15:00] VITALS: BP 128/79
== END 2025-02-07 16:56 | DRG 62 ==
LOC: 3 WEST ACU 10:06
PROVIDERS: Radiology Diagnostic Radiology; Registered Nurse; ADMITTING PHYSICIAN Hospitalist; ATTENDING PHYSICIAN Hospitalist; CONSULT PHYSICIAN Physical Medicine & Rehabilitation; CONSULT PHYSICIAN Psychiatry & Neurology Neurology; EMERGENCY PHYSICIAN Emergency Medicine; FAMILY PHYSICIAN Family Medicine; OTHER PHYSICIAN Internal Medicine Critical Care Medicine
PROC: 3E03317 Introduction of Other Thrombolytic into Peripheral Vein, Percutaneous Approach (ICD-10-PCS; 2025-01-29)
PROC: 0DH67UZ Insertion of Feeding Device into Stomach, Via Natural or Artificial Opening (ICD-10-PCS; 2025-01-30)
DX: I63.512 Cerebral infarction due to unspecified occlusion or stenosis of left middle cerebral artery (principal); G81.94 Hemiplegia, unspecified affecting left nondominant side; R41.4 Neurologic neglect syndrome; R47.81 Slurred speech; R29.810 Facial weakness; R47.1 Dysarthria and anarthria; H53.461 Homonymous bilateral field defects, right side; H53.8 Other visual disturbances; G89.29 Other chronic pain; F41.9 Anxiety disorder, unspecified; F32.A Depression, unspecified; E78.00 Pure hypercholesterolemia, unspecified; R47.01 Aphasia; I10 Essential (primary) hypertension; N40.0 Benign prostatic hyperplasia without lower urinary tract symptoms; H40.9 Unspecified glaucoma; K21.9 Gastro-esophageal reflux disease without esophagitis; K57.30 Diverticulosis of large intestine without perforation or abscess without bleeding; M48.061 Spinal stenosis, lumbar region without neurogenic claudication; J30.2 Other seasonal allergic rhinitis; I70.0 Atherosclerosis of aorta; Z87.440 Personal history of urinary (tract) infections; Z87.442 Personal history of urinary calculi; Z90.49 Acquired absence of other specified parts of digestive tract; Z80.52 Family history of malignant neoplasm of bladder; Z90.5 Acquired absence of kidney; Z98.42 Cataract extraction status, left eye; Z98.41 Cataract extraction status, right eye; Z86.73 Personal history of transient ischemic attack (TIA), and cerebral infarction without residual deficits; Z98.1 Arthrodesis status; Z85.528 Personal history of other malignant neoplasm of kidney; Z90.79 Acquired absence of other genital organ(s); Z88.0 Allergy status to penicillin; Z91.040 Latex allergy status; Z79.82 Long term (current) use of aspirin; Z79.899 Other long term (current) drug therapy; Z86.0100 Personal history of colon polyps, unspecified; Z80.0 Family history of malignant neoplasm of digestive organs; Z63.72 Alcoholism and drug addiction in family; Z81.1 Family history of alcohol abuse and dependence; Z91.81 History of falling
CPT/HCPCS: 0042T; 70450; 70496; 70498; 70551; 71045; 74018; 74230; 80048; 80053; 80061; 81003; 81015; 82962; 83036; 83735; 84100; 85025; 85027; 85610; 85730; 87086; 92507; 92523; 92526; 92610; 92611; 93005; 93306; 96374; 96375; 97110; 97112; 97116; 97129; 97163; 97167; 97530; 97535; 99285; J3101; Q9967

== ENCOUNTER → 2025-02-27 10:42 | Outpatient (REF) | payer MEDICARE, OTHER, SELFPAY ==
[2025-02-27 11:48] LABS: Hematocrit 32.6 % (39.0-52.0); Hemoglobin 10.9 g/dL (13.0-18.0); Mean Corp Hgb Conc. 33.4 g/dL (33.0-37.0); Mean Corpuscular Volume 92.1 fL (80.0-94.0); Nucleated Red Blood Cells % 0 % (-); Platelet Count 194 10^3/uL (130-400); Red Cell Dist. Width 13.4 % (11.5-14.5)
[2025-02-27 12:12] LABS: Blood Urea Nitrogen 24 mg/dl (9-20); Calcium 9.0 mg/dl (8.4-10.2); Carbon Dioxide 25 mmol/L (22-30); Chloride 106 mmol/L (98-107); Glucose 124 mg/dl (70-99); Potassium 4.1 mmol/L (3.5-5.1); Sodium 139 mmol/L (135-145); eGFR 55.53
== END ==
LOC: OLABPV 10:42
PROVIDERS: ATTENDING PHYSICIAN Family Medicine
DX: R79.9 Abnormal finding of blood chemistry, unspecified (principal)
CPT/HCPCS: 36415; 80048; 85025